=== PATIENT | male | born 1970 | race Caucasian/White ===

== ENCOUNTER 2018-09-01 14:53 | Inpatient (IN) | payer OTHER ==
[2018-09-01 16:15] VITALS: BMI 26.4
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
[2018-09-01] MEDS ORDERED: chlordiazePOXIDE HCL 10 MG CAPSULE PO PRN (17:32)
[2018-09-01] MEDS ORDERED: MENTHOL/PHENOL 1 EACH UD MM PRN (17:32)
[2018-09-01] MEDS ORDERED: MELATONIN 5 MG TABLETS PO PRN (17:32)
[2018-09-01] MEDS ORDERED: ACETAMINOPHEN 325 MG TABLET (FP) PO PRN ×2 (17:32)
[2018-09-01] MEDS ORDERED: MAG HYDROX/AL HYDROX/SIMETH 30 ML UNIT-DOSE CUP PO PRN (17:32)
[2018-09-01] MEDS ORDERED: MAGNESIUM CITRATE 300 ML BOTTLE PO PRN (17:32)
[2018-09-01] MEDS ORDERED: METHOCARBAMOL 500 MG TABLET PO PRN (17:32)
[2018-09-01] MEDS ORDERED: MAGNESIUM HYDROX 2400MG/30ML ORAL SUSPENSION 30 ML CUP PO PRN (17:32)
[2018-09-01] MEDS ORDERED: hydrOXYzine PAMOATE 25 MG CAPSULE (FP) PO PRN (17:32)
[2018-09-01] MEDS ORDERED: IBUPROFEN 400 MG TABLET (FP) PO PRN (17:32)
[2018-09-01] MEDS ORDERED: NICOTINE POLACRILEX 2 MG GUM BUC PRN (17:32)
[2018-09-01] MEDS ORDERED: BISMUTH SUBSALICYLATE 524 MG/30 ML UD PO PRN (17:32)
[2018-09-01] MEDS ORDERED: BACITRACIN 0.9 GM PACKET TP ONE (19:00)
[2018-09-01] MEDS: chlordiazePOXIDE HCL 25 MG CAPSULE PO SCH (23:18)
[2018-09-01] MEDS: THIAMINE HCL 100 MG TABLET (FP) PO SCH (23:18)
[2018-09-02] MEDS: chlordiazePOXIDE HCL 25 MG CAPSULE PO SCH ×2 (05:27→15:11)
[2018-09-02 10:11] LABS: HEMOGLOBIN 15.2 GM/dL (11.7-16.9); MCH 33.4 pg (25.7-33.7); MCHC 33.7 g/dl (32.0-35.9); MEAN PLT VOLUME 8.4 fl (7.5-11.1); PLATELET COUNT 223 K/MM3 (134-434); RBC 4.54 M/mm3 (4.00-5.60); RDW 14.1 % (11.9-15.9); WHITE BLOOD COUNT 3.8 K/mm3 (4.0-10.0)
[2018-09-02 10:25] LABS: ALBUMIN 3.5 g/dl (3.4-5.0); ALK PHOS 81 U/L (45-117); ANION GAP 6 MMOL/L (8-16); BILIRUBIN,TOTAL 1.2 mg/dL (0.2-1); BLOOD UREA NITROGEN 19 mg/dL (7-18); CALCIUM 8.8 mg/dL (8.5-10.1); CHLORIDE 103 mmol/L (98-107); CO2 28 mmol/L (21-32); GLUCOSE,RANDOM 93 mg/dL (74-106); POTASSIUM 4.1 mmol/L (3.5-5.1); SGOT/AST 46 U/L (15-37); SGPT/ALT 67 U/L (13-61); SODIUM 138 mmol/L (136-145); TOT PROT 7.2 g/dl (6.4-8.2)
[2018-09-02] MEDS: NICOTINE 14 MG/24 HOURS TOPICAL PATCH TD SCH (10:35)
[2018-09-02] MEDS: PRENATAL VITAMINS W/ FOLIC ACID TABLET (FP) PO SCH (10:36)
--- NOTE | 2018-09-02 10:59 | EKG ---
Test Reason : Blood Pressure : / mmHG Vent. Rate : 088 BPM Atrial Rate : 088 BPM P-R Int : 150 ms QRS Dur : 074 ms QT Int : 340 ms P-R-T Axes : 055 018 018 degrees QTc Int : 411 ms NORMAL SINUS RHYTHM NORMAL ECG NO PREVIOUS ECGS AVAILABLE Confirmed by ASAEL GARCIA MD ([id number]) on 09/02/2018 10:58:44 AM Referred By: LAURA SANTIAGO Confirmed By:ASAEL GARCIA MD
--- NOTE | 2018-09-02 14:23 | PN ---
S CIWA - CIWA Score Nausea/Vomitin-Mild Nausea/No Vomiting Muscle Tremors: 1-None Visible, but [place] Anxiety: 1-Mildly Anxious Agitation: 2 Paroxysmal Sweats: 1-Minimal Palms Moist Orientation: 0-Oriented Tacttile Disturbances: 0-None Auditory Disturbances: 0-None Visual Disturbances: 0-None Headache: 1-Very Mild CIWA-Ar Total Score: 7 BHS Progress Note (SOAP) Subjective: pt admitted yesterday for alcohol use disorder- also with facial injury due to fall on 08/31/18- negative eval in ER O: Vital Signs - 24 hr 09/01/18 09/01/18 09/02/18 16:08 21:33 00:44 Temperature 97.8 F 98.5 F Pulse Rate 125 H 90 Respiratory 18 18 18 Rate Blood Pressure 154/98 123/80 09/02/18 09/02/18 09/02/18 03:30 06:35 09:15 Temperature 98.2 F 96.3 F L Pulse Rate 62 96 H Respiratory 18 18 18 Rate Blood Pressure 103/67 127/79 09/02/18 13:47 Temperature 97.8 F Pulse Rate 78 Respiratory 18 Rate Blood Pressure 135/88 Laboratory Tests 09/02/18 09/02/18 09/02/18 07:00 07:00 07:00 WBC 3.8 L RBC 4.54 Hgb 15.2 Hct 45.0 MCV 99.0 H MCH 33.4 MCHC 33.7 RDW 14.1 Plt Count 223 MPV 8.4 Sodium 138 Potassium 4.1 Chloride 103 Carbon Dioxide 28 Anion Gap 6 L BUN 19 H Creatinine 1.0 Creat Clearance w eGFR 79.75 Random Glucose 93 Calcium 8.8 Total Bilirubin 1.2 H AST 46 H ALT 67 H Alkaline Phosphatase 81 Total Protein 7.2 Albumin 3.5 RPR Titer Nonreactive mildly elevated liver enzymes a/p: continue alcohol detox protocol: d/w pt to monitor facial injury for infection: increased swelling, redness or warmth
[2018-09-02] MEDS: chlordiazePOXIDE 5 MG CAPSULE PO SCH (22:39)
[2018-09-02] MEDS: THIAMINE HCL 100 MG TABLET (FP) PO SCH (22:39)
[2018-09-03] MEDS: chlordiazePOXIDE 5 MG CAPSULE PO SCH ×2 (06:07→14:11)
[2018-09-03] MEDS: NICOTINE 14 MG/24 HOURS TOPICAL PATCH TD SCH (10:55)
[2018-09-03] MEDS: PRENATAL VITAMINS W/ FOLIC ACID TABLET (FP) PO SCH (10:55)
--- NOTE | 2018-09-03 11:28 | PN ---
S CIWA - CIWA Score Nausea/Vomitin-No Nausea/No Vomiting Muscle Tremors: 4-Moderate,w/Arms Extend Anxiety: 4-Mod. Anxious/Guarded Agitation: 3 Paroxysmal Sweats: 1-Minimal Palms Moist Orientation: 0-Oriented Tacttile Disturbances: 0-None Auditory Disturbances: 0-None Visual Disturbances: 0-None Headache: 0-None Present CIWA-Ar Total Score: 12 BHS Progress Note (SOAP) Subjective: ANXIETY, TREMORS, IRRITABILITY, SWEATS. PAIN TO FACIAL TRUAMA INJURY RIGHT SIDE. Objective: 09/03/18 11:25 Vital Signs 09/03/18 09/03/18 06:11 09:40 Temperature 97.2 F L 97.3 F L Pulse Rate 57 L 69 Respiratory 18 18 Rate Blood Pressure 115/72 131/82 Laboratory Tests 09/02/18 09/02/18 09/02/18 07:00 07:00 07:00 WBC 3.8 L RBC 4.54 Hgb 15.2 Hct 45.0 MCV 99.0 H MCH 33.4 MCHC 33.7 RDW 14.1 Plt Count 223 MPV 8.4 Sodium 138 Potassium 4.1 Chloride 103 Carbon Dioxide 28 Anion Gap 6 L BUN 19 H Creatinine 1.0 Creat Clearance w eGFR 79.75 Random Glucose 93 Calcium 8.8 Total Bilirubin 1.2 H AST 46 H ALT 67 H Alkaline Phosphatase 81 Total Protein 7.2 Albumin 3.5 RPR Titer Nonreactive Assessment: 09/03/18 11:25 ALCOHOL WITHDRAWAL SX S/P HEAD TRUAMA W/ FACIAL INJURY Plan: CONTINUE DETOX CONTINUE CURRENT WOUND CARE. MOTRIN PRN
[2018-09-03] MEDS ORDERED: chlordiazePOXIDE HCL 10 MG CAPSULE PO PRN (21:00)
[2018-09-03] MEDS: chlordiazePOXIDE HCL 10 MG CAPSULE PO SCH (22:28)
[2018-09-03] MEDS: THIAMINE HCL 100 MG TABLET (FP) PO SCH (22:28)
[2018-09-03] MEDS: BACITRACIN 0.9 GM PACKET TP SCH (22:57)
[2018-09-04] MEDS: chlordiazePOXIDE HCL 10 MG CAPSULE PO SCH (06:44)
[2018-09-04 09:17] VITALS: BP 131/85; PULSE 64; TEMP 96.6
--- NOTE | 2018-09-04 09:26 | DS ---
[facility] Detox Discharge Summary Admission Date: 09/01/18 Discharge Date: 09/04/18 - History Present History: Alcohol Dependence Additional Comments: 48 years old male admitted on 09/01/18 for alcohol withdrawal stabilization completed alcohol detox regimen alert no acute distress aftercare [facility] Physical Exam Results Vital Signs: Vital Signs Temperature 96.6 F L 09/04/18 09:16 Pulse Rate 64 09/04/18 09:16 Respiratory Rate 18 09/04/18 09:16 Blood Pressure 131/85 09/04/18 09:16 O2 Sat by Pulse Oximetry (%) Pertinent Admission Physical Exam Findings: alcohol withdrawal sx Laboratory Last Values WBC 3.8 K/mm3 (4.0-10.0) L 09/02/18 07:00 RBC 4.54 M/mm3 (4.00-5.60) 09/02/18 07:00 Hgb 15.2 GM/dL (11.7-16.9) 09/02/18 07:00 Hct 45.0 % (35.4-49) 09/02/18 07:00 MCV 99.0 fl (80-96) H 09/02/18 07:00 MCH 33.4 pg (25.7-33.7) 09/02/18 07:00 MCHC 33.7 g/dl (32.0-35.9) 09/02/18 07:00 RDW 14.1 % (11.9-15.9) 09/02/18 07:00 Plt Count 223 K/MM3 (134-434) 09/02/18 07:00 MPV 8.4 fl (7.5-11.1) 09/02/18 07:00 Sodium 138 mmol/L (136-145) 09/02/18 07:00 Potassium 4.1 mmol/L (3.5-5.1) 09/02/18 07:00 Chloride 103 mmol/L (98-107) 09/02/18 07:00 Carbon Dioxide 28 mmol/L (21-32) 09/02/18 07:00 Anion Gap 6 MMOL/L (8-16) L 09/02/18 07:00 BUN 19 mg/dL (7-18) H 09/02/18 07:00 Creatinine 1.0 mg/dL (0.55-1.3) 09/02/18 07:00 Creat Clearance w eGFR 79.75 (>60) 09/02/18 07:00 Random Glucose 93 mg/dL (74-106) 09/02/18 07:00 Calcium 8.8 mg/dL (8.5-10.1) 09/02/18 07:00 Total Bilirubin 1.2 mg/dL (0.2-1) H 09/02/18 07:00 AST 46 U/L (15-37) H 09/02/18 07:00 ALT 67 U/L (13-61) H 09/02/18 07:00 Alkaline Phosphatase 81 U/L (45-117) 09/02/18 07:00 Total Protein 7.2 g/dl (6.4-8.2) 09/02/18 07:00 Albumin 3.5 g/dl (3.4-5.0) 09/02/18 07:00 RPR Titer Nonreactive (NONREACTIVE) 09/02/18 07:00 lab noted - Treatment Hospital Course: Detox Protocol Followed, Detoxed Safely, Responded well, Discharged Condition Good, Rehab Referral Accepted Patient has Accepted a Rehab Referral to: [facility] - Medication Discharge Medications: Ambulatory Orders NK [No Known Home Medication] 09/01/18 - Diagnosis (1) Alcohol dependence with uncomplicated withdrawal Current Visit: Yes Status: Acute (2) Soft tissue injury of face Current Visit: Yes Status: Acute Qualifiers: Encounter type: initial encounter Qualified Code(s): S09.93XA - Unspecified injury of face, initial encounter - AMA Did Patient Leave Against Medical Advice: No
[2018-09-04] MEDS: PRENATAL VITAMINS W/ FOLIC ACID TABLET (FP) PO SCH (10:25)
[2018-09-04] MEDS: BACITRACIN 0.9 GM PACKET TP SCH (10:26)
[2018-09-04] MEDS: NICOTINE 14 MG/24 HOURS TOPICAL PATCH TD SCH (10:26)
== END 2018-09-04 12:40 | disposition other institution (70) | DRG 775 ==
LOC: YASAS 14:53 → Y3N 18:26
PROVIDERS: ADMIT Surgery; ATTEND Surgery
PROC: HZ2ZZZZ Detoxification Services for Substance Abuse Treatment (ICD-10-PCS; principal; 2018-09-01)
DX: F10.230 Alcohol dependence with withdrawal, uncomplicated (principal); F17.210 Nicotine dependence, cigarettes, uncomplicated; R03.0 Elevated blood-pressure reading, without diagnosis of hypertension; S09.93XA Unspecified injury of face, initial encounter; W19.XXXA Unspecified fall, initial encounter; Z91.81 History of falling; Y93.89 Activity, other specified; Y92.89 Other specified places as the place of occurrence of the external cause; Y99.8 Other external cause status
CPT/HCPCS: 36415; 80053; 85027; 86593; 93005; 93010

== ENCOUNTER 2018-09-04 12:46 | Inpatient (IN) | payer OTHER ==
--- NOTE | 2018-09-04 09:28 | HP ---
NIESHA SCHMIDT Rehab Assess/Revision - Admission History Admitted to Rehab from: [facility] Date of Admission to Rehab: 09/04/18 - Findings Detox History & Physical reviewed: Yes Concur with findings: Yes Comments/Additional Findings: transferred from detox to rehab admission as per protocol Inpatient Rehab Admission - Rehab Decision to Admit Inpatient rehab admission?: Yes - Initial Determination Are CD services needed?: Yes Free of communicable disease: Yes Not in need of hospitalization: Yes - Rehab Admission Criteria Previous failed treatment: Yes Poor recovery environment: Yes Comorbidities: Yes Lacks judgement: No Patient is meeting Inpatient Rehab admission criteria:: Yes
[~2018-09-04 12:46] MED LIST: ACETAMINOPHEN 325 MG TABLET (FP) PO PRN; IBUPROFEN 400 MG TABLET (FP) PO PRN; LOPERAMIDE HCL 2 MG CAPSULE PO PRN; MAG HYDROX/AL HYDROX/SIMETH 30 ML UNIT-DOSE CUP PO PRN; MAGNESIUM CITRATE 300 ML BOTTLE PO PRN; MAGNESIUM HYDROX 2400MG/30ML ORAL SUSPENSION 30 ML CUP PO PRN; guaiFENesin 200 MG/10 ML 10 ML UNIT-DOSE CUPS PO PRN
[2018-09-04] MEDS ORDERED: NICOTINE 14 MG/24 HOURS TOPICAL PATCH TD PRN (13:38)
[2018-09-04] MEDS ORDERED: MENTHOL/PHENOL 1 EACH UD MM PRN (13:38)
[2018-09-04] MEDS ORDERED: NICOTINE POLACRILEX 2 MG GUM BUC PRN (13:38)
[2018-09-04] MEDS ORDERED: P-EPHED 60MG/TRIPROLIDI 2.5MG TABLET PO PRN (13:38)
[2018-09-04] MEDS: PRENATAL VITAMINS W/ FOLIC ACID TABLET (FP) PO SCH (14:08)
[2018-09-04] MEDS: BACITRACIN 0.9 GM PACKET TP SCH (14:08)
[2018-09-04] MEDS: MELATONIN 5 MG TABLETS PO PRN (21:25)
[2018-09-04] MEDS: THIAMINE HCL 100 MG TABLET (FP) PO SCH (21:25)
[2018-09-05] MEDS ORDERED: PT OWN MED DRAWER 7, Y5N ONE (09:08)
[2018-09-05] MEDS: PRENATAL VITAMINS W/ FOLIC ACID TABLET (FP) PO SCH (10:25)
[2018-09-05] MEDS: BACITRACIN 0.9 GM PACKET TP SCH (10:25)
[2018-09-05] MEDS: THIAMINE HCL 100 MG TABLET (FP) PO SCH (21:25)
[2018-09-05] MEDS: MELATONIN 5 MG TABLETS PO PRN (21:25)
[2018-09-06] MEDS: BACITRACIN 0.9 GM PACKET TP SCH (10:21)
[2018-09-06] MEDS: PRENATAL VITAMINS W/ FOLIC ACID TABLET (FP) PO SCH (10:21)
[2018-09-06] MEDS: MELATONIN 5 MG TABLETS PO PRN (21:16)
[2018-09-06] MEDS: THIAMINE HCL 100 MG TABLET (FP) PO SCH (21:16)
[2018-09-07] MEDS: BACITRACIN 0.9 GM PACKET TP SCH (10:45)
[2018-09-07] MEDS: PRENATAL VITAMINS W/ FOLIC ACID TABLET (FP) PO SCH (10:45)
[2018-09-07] MEDS: MELATONIN 5 MG TABLETS PO PRN (21:33)
[2018-09-07] MEDS: THIAMINE HCL 100 MG TABLET (FP) PO SCH (21:33)
[2018-09-08] MEDS: BACITRACIN 0.9 GM PACKET TP SCH (09:27)
[2018-09-08] MEDS: PRENATAL VITAMINS W/ FOLIC ACID TABLET (FP) PO SCH (09:27)
[2018-09-08] MEDS: THIAMINE HCL 100 MG TABLET (FP) PO SCH (21:25)
[2018-09-08] MEDS: MELATONIN 5 MG TABLETS PO PRN (21:26)
[2018-09-09] MEDS: PRENATAL VITAMINS W/ FOLIC ACID TABLET (FP) PO SCH (10:39)
[2018-09-09] MEDS: BACITRACIN 0.9 GM PACKET TP SCH (10:39)
[2018-09-09] MEDS: THIAMINE HCL 100 MG TABLET (FP) PO SCH (21:23)
[2018-09-09] MEDS: MELATONIN 5 MG TABLETS PO PRN (21:23)
[2018-09-10] MEDS: BACITRACIN 0.9 GM PACKET TP SCH (10:21)
[2018-09-10] MEDS: PRENATAL VITAMINS W/ FOLIC ACID TABLET (FP) PO SCH (10:21)
[2018-09-10] MEDS: THIAMINE HCL 100 MG TABLET (FP) PO SCH (21:25)
[2018-09-10] MEDS: MELATONIN 5 MG TABLETS PO PRN (21:25)
[2018-09-11] MEDS: PRENATAL VITAMINS W/ FOLIC ACID TABLET (FP) PO SCH (10:21)
[2018-09-11] MEDS: BACITRACIN 0.9 GM PACKET TP SCH (10:21)
[2018-09-11] MEDS: THIAMINE HCL 100 MG TABLET (FP) PO SCH (21:19)
[2018-09-11] MEDS: MELATONIN 5 MG TABLETS PO PRN (21:19)
[2018-09-12] MEDS: PRENATAL VITAMINS W/ FOLIC ACID TABLET (FP) PO SCH (10:19)
[2018-09-12] MEDS: BACITRACIN 0.9 GM PACKET TP SCH (10:19)
[2018-09-12] MEDS: MELATONIN 5 MG TABLETS PO PRN (21:17)
[2018-09-12] MEDS: THIAMINE HCL 100 MG TABLET (FP) PO SCH (21:17)
[2018-09-13] MEDS: PRENATAL VITAMINS W/ FOLIC ACID TABLET (FP) PO SCH (10:58)
[2018-09-13] MEDS: BACITRACIN 0.9 GM PACKET TP SCH (10:58)
[2018-09-13] MEDS: MELATONIN 5 MG TABLETS PO PRN (21:31)
[2018-09-13] MEDS: THIAMINE HCL 100 MG TABLET (FP) PO SCH (21:31)
[2018-09-14] MEDS: PRENATAL VITAMINS W/ FOLIC ACID TABLET (FP) PO SCH (10:44)
[2018-09-14] MEDS: BACITRACIN 0.9 GM PACKET TP SCH (10:44)
[2018-09-14] MEDS: THIAMINE HCL 100 MG TABLET (FP) PO SCH (21:15)
[2018-09-14] MEDS: MELATONIN 5 MG TABLETS PO PRN (21:15)
[2018-09-15] MEDS: PRENATAL VITAMINS W/ FOLIC ACID TABLET (FP) PO SCH (10:11)
[2018-09-15] MEDS: BACITRACIN 0.9 GM PACKET TP SCH (10:11)
--- NOTE | 2018-09-15 14:51 | PN ---
BHS Progress Note (SOAP) Subjective: Patient to be discharged tomorrow. Objective: A=Ox3; no neurological deficits, Heart sounds regular, Lungs clear, abd soft, non-tender. 09/15/18 14:47 Vital Signs (72 hours) 09/13/18 09/13/18 09/13/18 00:30 03:30 07:10 Temperature 97.4 F L Pulse Rate 60 Respiratory 18 18 18 Rate Blood Pressure 120/83 09/14/18 09/14/18 09/15/18 03:30 06:45 00:30 Temperature 97.4 F L Pulse Rate 57 L Respiratory 18 18 20 Rate Blood Pressure 127/86 09/15/18 09/15/18 03:30 07:03 Temperature 97.6 F Pulse Rate 58 L Respiratory 18 18 Rate Blood Pressure 120/84 09/15/18 14:49 Assessment: Medically stable for discharge ETOH dependence, chronic 09/15/18 14:48 Plan: After care at [facility]. Patient does not have a medical provider, no prescriptions. Encouraged patient to engage a medical provider.
[2018-09-15] MEDS: MELATONIN 5 MG TABLETS PO PRN (21:39)
[2018-09-15] MEDS: THIAMINE HCL 100 MG TABLET (FP) PO SCH (21:39)
[2018-09-16 07:10] VITALS: BP 121/92; PULSE 63; TEMP 97.5
== END 2018-09-16 09:45 | disposition home or self-care (01) | DRG 772 ==
LOC: YASAS 12:46 → Y3W 12:47
PROVIDERS: ADMIT Neuromusculoskeletal Medicine & OMM; ATTEND Neuromusculoskeletal Medicine & OMM
PROC: HZ42ZZZ Group Counseling for Substance Abuse Treatment, Cognitive-Behavioral (ICD-10-PCS; principal; 2018-09-07)
DX: F10.20 Alcohol dependence, uncomplicated (principal); F17.210 Nicotine dependence, cigarettes, uncomplicated; R00.0 Tachycardia, unspecified
CPT/HCPCS: 36415; 87389

== ENCOUNTER 2019-01-23 21:00 | Inpatient (IN) | payer OTHER ==
[2019-01-23 18:27] VITALS: BMI 25.4
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
[2019-01-23] MEDS ORDERED: MENTHOL/PHENOL 1 EACH UD MM PRN (22:49)
[2019-01-23] MEDS ORDERED: BISMUTH SUBSALICYLATE 524 MG/30 ML UD PO PRN (22:49)
[2019-01-23] MEDS ORDERED: ACETAMINOPHEN 325 MG TABLET (FP) PO PRN ×2 (22:49)
[2019-01-23] MEDS ORDERED: MAG HYDROX/AL HYDROX/SIMETH 30 ML UNIT-DOSE CUP PO PRN (22:49)
[2019-01-23] MEDS ORDERED: ONDANSETRON *ODT* 4 MG TABLET SL PRN (22:49)
[2019-01-23] MEDS ORDERED: IBUPROFEN 400 MG TABLET (FP) PO PRN (22:49)
[2019-01-23] MEDS ORDERED: NICOTINE POLACRILEX 2 MG GUM BUC PRN (22:49)
[2019-01-23] MEDS ORDERED: hydrOXYzine PAMOATE 25 MG CAPSULE (FP) PO PRN (22:49)
[2019-01-23] MEDS ORDERED: MAGNESIUM CITRATE 300 ML BOTTLE PO PRN (22:49)
[2019-01-23] MEDS ORDERED: MAGNESIUM HYDROX 2400MG/30ML ORAL SUSPENSION 30 ML CUP PO PRN (22:49)
[2019-01-23] MEDS ORDERED: chlordiazePOXIDE HCL 25 MG CAPSULE PO PRN (22:50)
[2019-01-24] MEDS: chlordiazePOXIDE HCL 25 MG CAPSULE PO SCH ×5 (00:02→22:12)
[2019-01-24] MEDS: MELATONIN 5 MG TABLETS PO PRN (00:03)
[2019-01-24] MEDS: BACITRACIN/POLYMYXIN B SULFATE 15 GM TUBE TP SCH ×3 (03:51→22:15)
[2019-01-24] MEDS: PRENATAL VITAMINS W/ FOLIC ACID TABLET (FP) PO SCH (10:34)
[2019-01-24 10:35] LABS: ALBUMIN 3.7 g/dl (3.4-5.0); BILIRUBIN,TOTAL 0.4 mg/dL (0.2-1); BLOOD UREA NITROGEN 12.8 mg/dL (7-18); CALCIUM 8.8 mg/dL (8.5-10.1); CREATININE 0.9 mg/dL (0.55-1.3); POTASSIUM 3.7 mmol/L (3.5-5.1); TOT PROT 7.3 g/dl (6.4-8.2)
[2019-01-24 10:44] LABS: HEMATOCRIT 45.4 % (35.4-49); HEMOGLOBIN 15.3 GM/dL (11.7-16.9); MCHC 33.7 g/dl (32.0-35.9); MEAN CELL VOLUME 100.8 fl (80-96); MEAN PLT VOLUME 8.4 fl (7.5-11.1); PLATELET COUNT 228 K/MM3 (134-434); RDW 15.2 % (11.9-15.9)
[2019-01-24] MEDS ORDERED: BACITRACIN 15 GM TUBE TOPICAL OINTMENT TP SCH (13:00)
--- NOTE | 2019-01-24 13:06 | PN ---
[facility] CIWA - CIWA Score Nausea/Vomitin-No Nausea/No Vomiting Muscle Tremors: 2 Anxiety: 4-Mod. Anxious/Guarded Agitation: 0-Normal Activity Paroxysmal Sweats: No Perspiration Orientation: 2-Disoriented Date<2 days Tacttile Disturbances: 2-Mild Itch/Numbness/Burn Auditory Disturbances: 0-None Visual Disturbances: 2-Mild Sensitivity Headache: 0-None Present CIWA-Ar Total Score: 12 BHS Progress Note (SOAP) Subjective: Body Aches, Anxious, Tremors. Objective: PATIENT A & O X 2 (UNCERTAIN ABOUT CURRENT DAY / DATE). IN NO ACUTE DISTRESS. 01/24/19 13:09 Vital Signs Temperature 98.4 F 01/24/19 09:35 Pulse Rate 87 01/24/19 09:35 Respiratory Rate 18 01/24/19 09:35 Blood Pressure 108/59 L 01/24/19 09:35 O2 Sat by Pulse Oximetry (%) Laboratory Tests 01/24/19 01/24/19 01/24/19 08:15 08:15 08:15 WBC 3.0 L RBC 4.50 Hgb 15.3 Hct 45.4 MCV 100.8 H MCH 34.0 H MCHC 33.7 RDW 15.2 Plt Count 228 MPV 8.4 Sodium 142 Potassium 3.7 Chloride 106 Carbon Dioxide 25 Anion Gap 10 BUN 12.8 Creatinine 0.9 Est GFR (CKD-EPI)AfAm 116.65 Est GFR (CKD-EPI)NonAf 100.64 Random Glucose 97 Calcium 8.8 Total Bilirubin 0.4 AST 126 H ALT 134 H Alkaline Phosphatase 89 Total Protein 7.3 Albumin 3.7 RPR Titer Nonreactive LABS NOTED. Assessment: 01/24/19 13:07 WITHDRAWAL SYMPTOMS. LEUKOPENIA. ELEVATED AST LEVEL. ELEVATED ALT LEVEL. 01/24/19 13:09 Plan: CONTINUE DETOX. INCREASE DAILY PO WATER INTAKE. REPEAT AST, ALT LEVELS ORDERED FOR 01/26/2019 FOR ELEVATED AST AND ALT LEVELS NOTED ON DETOX ADMISSION LABORATORY ASSESSMENT.
[2019-01-24] MEDS: MINERAL OIL/PETROLAT/WATER TOPICAL CREAM 113 GM JAR TP SCH ×2 (14:00→22:14)
[2019-01-24] MEDS: THIAMINE HCL 100 MG TABLET (FP) PO SCH (22:12)
[2019-01-25] MEDS: chlordiazePOXIDE HCL 25 MG CAPSULE PO SCH ×4 (05:24→22:22)
--- NOTE | 2019-01-25 10:23 | PN ---
[facility] CIWA - CIWA Score Nausea/Vomitin-Mild Nausea/No Vomiting Muscle Tremors: 2 Anxiety: 2 Agitation: 3 Paroxysmal Sweats: 2 Orientation: 1-Uncertain about Date Tacttile Disturbances: 0-None Auditory Disturbances: 0-None Visual Disturbances: 0-None Headache: 0-None Present CIWA-Ar Total Score: 11 [facility] Progress Note (SOAP) Subjective: doing well with librium detox regimen ate breakfast resting on bed comfortably Objective: 01/25/19 10:26 Vital Signs Temperature 97.2 F L 01/25/19 09:41 Pulse Rate 66 01/25/19 09:41 Respiratory Rate 18 01/25/19 09:41 Blood Pressure 140/96 01/25/19 09:41 O2 Sat by Pulse Oximetry (%) Laboratory Last Values WBC 3.0 K/mm3 (4.0-10.0) L 01/24/19 08:15 RBC 4.50 M/mm3 (4.00-5.60) 01/24/19 08:15 Hgb 15.3 GM/dL (11.7-16.9) 01/24/19 08:15 Hct 45.4 % (35.4-49) 01/24/19 08:15 MCV 100.8 fl (80-96) H 01/24/19 08:15 MCH 34.0 pg (25.7-33.7) H 01/24/19 08:15 MCHC 33.7 g/dl (32.0-35.9) 01/24/19 08:15 RDW 15.2 % (11.9-15.9) 01/24/19 08:15 Plt Count 228 K/MM3 (134-434) 01/24/19 08:15 MPV 8.4 fl (7.5-11.1) 01/24/19 08:15 Sodium 142 mmol/L (136-145) 01/24/19 08:15 Potassium 3.7 mmol/L (3.5-5.1) 01/24/19 08:15 Chloride 106 mmol/L (98-107) 01/24/19 08:15 Carbon Dioxide 25 mmol/L (21-32) 01/24/19 08:15 Anion Gap 10 MMOL/L (8-16) 01/24/19 08:15 BUN 12.8 mg/dL (7-18) 01/24/19 08:15 Creatinine 0.9 mg/dL (0.55-1.3) 01/24/19 08:15 Est GFR (CKD-EPI)AfAm 116.65 01/24/19 08:15 Est GFR (CKD-EPI)NonAf 100.64 01/24/19 08:15 Random Glucose 97 mg/dL (74-106) 01/24/19 08:15 Calcium 8.8 mg/dL (8.5-10.1) 01/24/19 08:15 Total Bilirubin 0.4 mg/dL (0.2-1) 01/24/19 08:15 AST 126 U/L (15-37) H 01/24/19 08:15 ALT 134 U/L (13-61) H 01/24/19 08:15 Alkaline Phosphatase 89 U/L (45-117) 01/24/19 08:15 Total Protein 7.3 g/dl (6.4-8.2) 01/24/19 08:15 Albumin 3.7 g/dl (3.4-5.0) 01/24/19 08:15 RPR Titer Nonreactive (NONREACTIVE) 01/24/19 08:15 lab noted 01/25/19 10:28 ast repeat 01/27/19 Assessment: 01/25/19 10:28 alcohol withdrawal sx Plan: continue librium detox regimen
[2019-01-25] MEDS: PRENATAL VITAMINS W/ FOLIC ACID TABLET (FP) PO SCH (10:30)
[2019-01-25] MEDS: MINERAL OIL/PETROLAT/WATER TOPICAL CREAM 113 GM JAR TP SCH ×2 (10:30→22:30)
[2019-01-25] MEDS: BACITRACIN/POLYMYXIN B SULFATE 15 GM TUBE TP SCH ×2 (10:30→22:30)
[2019-01-25] MEDS: THIAMINE HCL 100 MG TABLET (FP) PO SCH (22:22)
[2019-01-25] MEDS: MELATONIN 5 MG TABLETS PO PRN (22:22)
[2019-01-26] MEDS ORDERED: chlordiazePOXIDE HCL 10 MG CAPSULE PO PRN
[2019-01-26] MEDS: chlordiazePOXIDE HCL 10 MG CAPSULE PO SCH ×4 (06:00→22:21)
[2019-01-26] MEDS: PRENATAL VITAMINS W/ FOLIC ACID TABLET (FP) PO SCH (10:19)
[2019-01-26] MEDS: MINERAL OIL/PETROLAT/WATER TOPICAL CREAM 113 GM JAR TP SCH ×2 (10:20→22:28)
[2019-01-26] MEDS: BACITRACIN/POLYMYXIN B SULFATE 15 GM TUBE TP SCH ×2 (10:20→22:28)
--- NOTE | 2019-01-26 10:25 | PN ---
[facility] CIWA - CIWA Score Nausea/Vomitin-No Nausea/No Vomiting Muscle Tremors: 2 Anxiety: 2 Agitation: 2 Paroxysmal Sweats: 1-Minimal Palms Moist Orientation: 0-Oriented Tacttile Disturbances: 0-None Auditory Disturbances: 0-None Visual Disturbances: 0-None Headache: 0-None Present CIWA-Ar Total Score: 7 BHS Progress Note (SOAP) Subjective: informed ast elevation discuss alcohol related liver insult Objective: 01/26/19 10:29 Vital Signs Temperature 97.0 F L 01/26/19 09:20 Pulse Rate 69 01/26/19 09:20 Respiratory Rate 18 01/26/19 09:20 Blood Pressure 119/82 01/26/19 09:20 O2 Sat by Pulse Oximetry (%) Laboratory Last Values WBC 3.0 K/mm3 (4.0-10.0) L 01/24/19 08:15 RBC 4.50 M/mm3 (4.00-5.60) 01/24/19 08:15 Hgb 15.3 GM/dL (11.7-16.9) 01/24/19 08:15 Hct 45.4 % (35.4-49) 01/24/19 08:15 MCV 100.8 fl (80-96) H 01/24/19 08:15 MCH 34.0 pg (25.7-33.7) H 01/24/19 08:15 MCHC 33.7 g/dl (32.0-35.9) 01/24/19 08:15 RDW 15.2 % (11.9-15.9) 01/24/19 08:15 Plt Count 228 K/MM3 (134-434) 01/24/19 08:15 MPV 8.4 fl (7.5-11.1) 01/24/19 08:15 Sodium 142 mmol/L (136-145) 01/24/19 08:15 Potassium 3.7 mmol/L (3.5-5.1) 01/24/19 08:15 Chloride 106 mmol/L (98-107) 01/24/19 08:15 Carbon Dioxide 25 mmol/L (21-32) 01/24/19 08:15 Anion Gap 10 MMOL/L (8-16) 01/24/19 08:15 BUN 12.8 mg/dL (7-18) 01/24/19 08:15 Creatinine 0.9 mg/dL (0.55-1.3) 01/24/19 08:15 Est GFR (CKD-EPI)AfAm 116.65 01/24/19 08:15 Est GFR (CKD-EPI)NonAf 100.64 01/24/19 08:15 Random Glucose 97 mg/dL (74-106) 01/24/19 08:15 Calcium 8.8 mg/dL (8.5-10.1) 01/24/19 08:15 Total Bilirubin 0.4 mg/dL (0.2-1) 01/24/19 08:15 AST 126 U/L (15-37) H 01/24/19 08:15 ALT 134 U/L (13-61) H 01/24/19 08:15 Alkaline Phosphatase 89 U/L (45-117) 01/24/19 08:15 Total Protein 7.3 g/dl (6.4-8.2) 01/24/19 08:15 Albumin 3.7 g/dl (3.4-5.0) 01/24/19 08:15 RPR Titer Nonreactive (NONREACTIVE) 01/24/19 08:15 lab noted repeat ast Assessment: 01/26/19 10:29 alcohol withdrawal sx Plan: continue librium detox regimen
[2019-01-26] MEDS: THIAMINE HCL 100 MG TABLET (FP) PO SCH (22:21)
[2019-01-26] MEDS: MELATONIN 5 MG TABLETS PO PRN (22:21)
[2019-01-27] MEDS: chlordiazePOXIDE HCL 10 MG CAPSULE PO SCH ×2 (05:46→17:33)
[2019-01-27 09:49] LABS: SGOT/AST 89 U/L (15-37); SGPT/ALT 117 U/L (13-61)
[2019-01-27] MEDS: BACITRACIN/POLYMYXIN B SULFATE 15 GM TUBE TP SCH ×2 (10:20→22:27)
[2019-01-27] MEDS: PRENATAL VITAMINS W/ FOLIC ACID TABLET (FP) PO SCH (10:20)
[2019-01-27] MEDS: MINERAL OIL/PETROLAT/WATER TOPICAL CREAM 113 GM JAR TP SCH ×2 (10:20→22:27)
--- NOTE | 2019-01-27 14:38 | PN ---
S CIWA - CIWA Score Nausea/Vomitin Muscle Tremors: 1-None Visible, but Dingess Anxiety: 2 Agitation: 0-Normal Activity Paroxysmal Sweats: 1-Minimal Palms Moist Orientation: 0-Oriented Tacttile Disturbances: 0-None Auditory Disturbances: 0-None Visual Disturbances: 0-None Headache: 0-None Present CIWA-Ar Total Score: 7 S Progress Note (SOAP) Subjective: c/o of nausea , decrease appetite, chills , diarrhea Objective: 01/27/19 14:37 Vital Signs Temperature 97.0 F L 01/27/19 13:22 Pulse Rate 75 01/27/19 13:22 Respiratory Rate 18 01/27/19 13:22 Blood Pressure 131/78 01/27/19 13:22 O2 Sat by Pulse Oximetry (%) Laboratory Last Values WBC 3.0 K/mm3 (4.0-10.0) L 01/24/19 08:15 RBC 4.50 M/mm3 (4.00-5.60) 01/24/19 08:15 Hgb 15.3 GM/dL (11.7-16.9) 01/24/19 08:15 Hct 45.4 % (35.4-49) 01/24/19 08:15 MCV 100.8 fl (80-96) H 01/24/19 08:15 MCH 34.0 pg (25.7-33.7) H 01/24/19 08:15 MCHC 33.7 g/dl (32.0-35.9) 01/24/19 08:15 RDW 15.2 % (11.9-15.9) 01/24/19 08:15 Plt Count 228 K/MM3 (134-434) 01/24/19 08:15 MPV 8.4 fl (7.5-11.1) 01/24/19 08:15 Sodium 142 mmol/L (136-145) 01/24/19 08:15 Potassium 3.7 mmol/L (3.5-5.1) 01/24/19 08:15 Chloride 106 mmol/L (98-107) 01/24/19 08:15 Carbon Dioxide 25 mmol/L (21-32) 01/24/19 08:15 Anion Gap 10 MMOL/L (8-16) 01/24/19 08:15 BUN 12.8 mg/dL (7-18) 01/24/19 08:15 Creatinine 0.9 mg/dL (0.55-1.3) 01/24/19 08:15 Est GFR (CKD-EPI)AfAm 116.65 01/24/19 08:15 Est GFR (CKD-EPI)NonAf 100.64 01/24/19 08:15 Random Glucose 97 mg/dL (74-106) 01/24/19 08:15 Calcium 8.8 mg/dL (8.5-10.1) 01/24/19 08:15 Total Bilirubin 0.4 mg/dL (0.2-1) 01/24/19 08:15 AST 89 U/L (15-37) H 01/27/19 07:30 ALT 117 U/L (13-61) H 01/27/19 07:30 Alkaline Phosphatase 89 U/L (45-117) 01/24/19 08:15 Total Protein 7.3 g/dl (6.4-8.2) 01/24/19 08:15 Albumin 3.7 g/dl (3.4-5.0) 01/24/19 08:15 RPR Titer Nonreactive (NONREACTIVE) 01/24/19 08:15 Assessment: 01/27/19 14:37 Aox3 no acute distress no adventitious breath sounds full ROM no gait abnormality withdrawal sx Plan: fluids as tolerated if stable d/c in AM continue detox continue to monitor
[2019-01-27] MEDS: THIAMINE HCL 100 MG TABLET (FP) PO SCH (22:27)
[2019-01-28] MEDS ORDERED: chlordiazePOXIDE HCL 10 MG CAPSULE PO ONE (05:00)
[2019-01-28] MEDS: PRENATAL VITAMINS W/ FOLIC ACID TABLET (FP) PO SCH (10:17)
[2019-01-28] MEDS: MINERAL OIL/PETROLAT/WATER TOPICAL CREAM 113 GM JAR TP SCH (10:18)
[2019-01-28] MEDS: BACITRACIN/POLYMYXIN B SULFATE 15 GM TUBE TP SCH (10:18)
--- NOTE | 2019-01-28 13:13 | DS ---
[facility] Detox Discharge Summary Admission Date: 01/23/19 Discharge Date: 01/28/19 - History Present History: Alcohol Dependence Additional Comments: PATIENT GOING TO [facility] ([facility]) FOR AFTERCARE. PATIENT WAS DISCHARGED FROM DETOX UNIT TO BE TAKEN OVER TO REHAB UNIT IN STABLE MEDICAL CONDITION. Pertinent Past History: Elevated AST Level, Elevated ALT Level, Leukopenia. - Physical Exam Results Vital Signs: Vital Signs Temperature 97.1 F L 01/28/19 09:28 Pulse Rate 82 01/28/19 09:28 Respiratory Rate 18 01/28/19 09:28 Blood Pressure 135/78 01/28/19 09:28 O2 Sat by Pulse Oximetry (%) Pertinent Admission Physical Exam Findings: WITHDRAWAL SYMPTOMS. Laboratory Tests 01/24/19 01/24/19 01/24/19 08:15 08:15 08:15 WBC 3.0 L RBC 4.50 Hgb 15.3 Hct 45.4 MCV 100.8 H MCH 34.0 H MCHC 33.7 RDW 15.2 Plt Count 228 MPV 8.4 Sodium 142 Potassium 3.7 Chloride 106 Carbon Dioxide 25 Anion Gap 10 BUN 12.8 Creatinine 0.9 Est GFR (CKD-EPI)AfAm 116.65 Est GFR (CKD-EPI)NonAf 100.64 Random Glucose 97 Calcium 8.8 Total Bilirubin 0.4 AST 126 H ALT 134 H Alkaline Phosphatase 89 Total Protein 7.3 Albumin 3.7 RPR Titer Nonreactive 01/27/19 07:30 WBC RBC Hgb Hct MCV MCH MCHC RDW Plt Count MPV Sodium Potassium Chloride Carbon Dioxide Anion Gap BUN Creatinine Est GFR (CKD-EPI)AfAm Est GFR (CKD-EPI)NonAf Random Glucose Calcium Total Bilirubin AST 89 H ALT 117 H Alkaline Phosphatase Total Protein Albumin RPR Titer LABS NOTED. - Treatment Hospital Course: Detox Protocol Followed, Detoxed Safely, Responded well, Discharged Condition Good, Rehab Referral Accepted Patient has Accepted a Rehab Referral to: [facility] ([facility]). - Medication Discharge Medications: Ambulatory Orders NK [No Known Home Medication] 09/01/18 - Diagnosis (1) Alcohol dependence with intoxication Current Visit: Yes Status: Acute Qualifiers: Complication of substance-induced condition: uncomplicated Qualified Code(s ): F10.220 - Alcohol dependence with intoxication, uncomplicated - AMA Did Patient Leave Against Medical Advice: No BHS CIWA - CIWA Score Nausea/Vomitin-No Nausea/No Vomiting Muscle Tremors: None Anxiety: 0-No Anxiety, at Ease Agitation: 2 Paroxysmal Sweats: No Perspiration Orientation: 0-Oriented Tacttile Disturbances: 0-None Auditory Disturbances: 0-None Visual Disturbances: 0-None Headache: 0-None Present CIWA-Ar Total Score: 2
[2019-01-28 13:14] VITALS: BP 138/87; PULSE 71; TEMP 97.6
== END 2019-01-28 14:10 | disposition other institution (70) | DRG 775 ==
LOC: YASAS 21:00 → Y3N 23:23
PROVIDERS: ADMIT Surgery; ATTEND Surgery
PROC: HZ2ZZZZ Detoxification Services for Substance Abuse Treatment (ICD-10-PCS; principal; 2019-01-24)
DX: F10.20 Alcohol dependence, uncomplicated (principal); F10.220 Alcohol dependence with intoxication, uncomplicated; F17.210 Nicotine dependence, cigarettes, uncomplicated; D72.819 Decreased white blood cell count, unspecified; R74.0 Nonspecific elevation of levels of transaminase and lactic acid dehydrogenase [LDH]; R00.0 Tachycardia, unspecified; Z59.0 Homelessness
CPT/HCPCS: 36415; 80053; 84450; 84460; 85027; 86593

== ENCOUNTER 2019-01-28 14:15 | Inpatient (IN) | payer OTHER ==
--- NOTE | 2019-01-28 13:18 | HP ---
[facility] Rehab Assess/Revision - Admission History Admitted to Rehab from: [facility] Date of Admission to Rehab: 01/28/2019 - Vital signs Vital Signs: NOTED; STABLE. - Findings Detox History & Physical reviewed: Yes Concur with findings: Yes Comments/Additional Findings: PATIENT'S MEDICAL / MEDICATION HISTORY REVIEWED PRIOR TO DISCHARGE FROM DETOX UNIT. PATIENT WAS DISCHARGED FROM DETOX UNIT TO BE TAKEN OVER TO REHAB UNIT IN STABLE MEDICAL CONDITION. Inpatient Rehab Admission - Rehab Decision to Admit Inpatient rehab admission?: Yes - Initial Determination Are CD services needed?: Yes Free of communicable disease: Yes Not in need of hospitalization: Yes - Rehab Admission Criteria Previous failed treatment: Yes Poor recovery environment: Yes Comorbidities: No Lacks judgement: Yes Patient is meeting Inpatient Rehab admission criteria:: Yes
[~2019-01-28 14:15] MED LIST changes: +MENTHOL/PHENOL 1 EACH UD MM PRN; +NICOTINE POLACRILEX 2 MG GUM BUC PRN; +P-EPHED 60MG/TRIPROLIDI 2.5MG TABLET PO PRN
[2019-01-28] MEDS: THIAMINE HCL 100 MG TABLET (FP) PO SCH (21:31)
[2019-01-28] MEDS: BACITRACIN/POLYMYXIN B SULFATE 15 GM TUBE TP SCH (21:31)
[2019-01-28] MEDS: MELATONIN 5 MG TABLETS PO PRN (21:32)
[2019-01-29] MEDS: PRENATAL VITAMINS W/ FOLIC ACID TABLET (FP) PO SCH (10:01)
[2019-01-29] MEDS: BACITRACIN/POLYMYXIN B SULFATE 15 GM TUBE TP SCH ×2 (10:01→21:18)
[2019-01-29] MEDS ORDERED: FLU VACCINE QUAD 60 MCG/0.5 ML (MDV 19-20) IM ONE (12:00)
[2019-01-29] MEDS ORDERED: PNEUMOC 13-VAL CONJ-DIP CRM/PF 0.5 ML DISP.SYRIN IM ONE (12:00)
[2019-01-29] MEDS: THIAMINE HCL 100 MG TABLET (FP) PO SCH (21:18)
[2019-01-29] MEDS: MELATONIN 5 MG TABLETS PO PRN (21:19)
[2019-01-30] MEDS: BACITRACIN/POLYMYXIN B SULFATE 15 GM TUBE TP SCH ×2 (10:27→21:43)
[2019-01-30] MEDS: PRENATAL VITAMINS W/ FOLIC ACID TABLET (FP) PO SCH (10:27)
[2019-01-30] MEDS: THIAMINE HCL 100 MG TABLET (FP) PO SCH (21:43)
[2019-01-31] MEDS: BACITRACIN/POLYMYXIN B SULFATE 15 GM TUBE TP SCH ×2 (10:13→21:11)
[2019-01-31] MEDS: PRENATAL VITAMINS W/ FOLIC ACID TABLET (FP) PO SCH (10:13)
[2019-01-31] MEDS: MELATONIN 5 MG TABLETS PO PRN (21:11)
[2019-01-31] MEDS: THIAMINE HCL 100 MG TABLET (FP) PO SCH (21:11)
[2019-02-01] MEDS: BACITRACIN/POLYMYXIN B SULFATE 15 GM TUBE TP SCH ×2 (10:38→21:32)
[2019-02-01] MEDS: PRENATAL VITAMINS W/ FOLIC ACID TABLET (FP) PO SCH (10:38)
[2019-02-01] MEDS: MELATONIN 5 MG TABLETS PO PRN (21:31)
[2019-02-01] MEDS: THIAMINE HCL 100 MG TABLET (FP) PO SCH (21:31)
[2019-02-02] MEDS: BACITRACIN/POLYMYXIN B SULFATE 15 GM TUBE TP SCH ×2 (10:18→21:15)
[2019-02-02] MEDS: PRENATAL VITAMINS W/ FOLIC ACID TABLET (FP) PO SCH (10:18)
[2019-02-02] MEDS: MELATONIN 5 MG TABLETS PO PRN (21:15)
[2019-02-02] MEDS: THIAMINE HCL 100 MG TABLET (FP) PO SCH (21:15)
[2019-02-03] MEDS: BACITRACIN/POLYMYXIN B SULFATE 15 GM TUBE TP SCH ×2 (10:29→21:32)
[2019-02-03] MEDS: PRENATAL VITAMINS W/ FOLIC ACID TABLET (FP) PO SCH (10:29)
[2019-02-03] MEDS: THIAMINE HCL 100 MG TABLET (FP) PO SCH (21:31)
[2019-02-03] MEDS: MELATONIN 5 MG TABLETS PO PRN (21:32)
[2019-02-04] MEDS: PRENATAL VITAMINS W/ FOLIC ACID TABLET (FP) PO SCH (09:27)
[2019-02-04] MEDS: BACITRACIN/POLYMYXIN B SULFATE 15 GM TUBE TP SCH ×2 (09:28→21:11)
[2019-02-04] MEDS: THIAMINE HCL 100 MG TABLET (FP) PO SCH (21:10)
[2019-02-05] MEDS ORDERED: PT OWN MED DRAWER 7, Y5N ONE (08:28)
[2019-02-05] MEDS: BACITRACIN/POLYMYXIN B SULFATE 15 GM TUBE TP SCH ×2 (09:50→21:25)
[2019-02-05] MEDS: PRENATAL VITAMINS W/ FOLIC ACID TABLET (FP) PO SCH (09:50)
[2019-02-05] MEDS: THIAMINE HCL 100 MG TABLET (FP) PO SCH (21:25)
[2019-02-06] MEDS: PRENATAL VITAMINS W/ FOLIC ACID TABLET (FP) PO SCH (10:45)
[2019-02-06] MEDS: BACITRACIN/POLYMYXIN B SULFATE 15 GM TUBE TP SCH ×2 (10:45→21:05)
[2019-02-06] MEDS ORDERED: PT OWN MED DRAWER 7, Y5N ONE ×2 (19:07→22:45)
[2019-02-06] MEDS: THIAMINE HCL 100 MG TABLET (FP) PO SCH (21:05)
[2019-02-06] MEDS: MELATONIN 5 MG TABLETS PO PRN (21:05)
[2019-02-07] MEDS: PRENATAL VITAMINS W/ FOLIC ACID TABLET (FP) PO SCH (10:26)
[2019-02-07] MEDS: BACITRACIN/POLYMYXIN B SULFATE 15 GM TUBE TP SCH ×2 (10:27→21:31)
[2019-02-07] MEDS: MELATONIN 5 MG TABLETS PO PRN (21:31)
[2019-02-07] MEDS: THIAMINE HCL 100 MG TABLET (FP) PO SCH (21:31)
[2019-02-08] MEDS: PRENATAL VITAMINS W/ FOLIC ACID TABLET (FP) PO SCH (10:37)
[2019-02-08] MEDS: BACITRACIN/POLYMYXIN B SULFATE 15 GM TUBE TP SCH ×2 (10:37→21:05)
[2019-02-08] MEDS: THIAMINE HCL 100 MG TABLET (FP) PO SCH (21:04)
[2019-02-08] MEDS: MELATONIN 5 MG TABLETS PO PRN (21:04)
[2019-02-08] MEDS ORDERED: PT OWN MED DRAWER 7, Y5N ONE (23:01)
[2019-02-09] MEDS: PRENATAL VITAMINS W/ FOLIC ACID TABLET (FP) PO SCH (09:50)
[2019-02-09] MEDS: BACITRACIN/POLYMYXIN B SULFATE 15 GM TUBE TP SCH ×2 (09:51→21:17)
[2019-02-09] MEDS ORDERED: PT OWN MED DRAWER 7, Y5N ONE (09:52)
[2019-02-09] MEDS: MELATONIN 5 MG TABLETS PO PRN (21:17)
[2019-02-09] MEDS: THIAMINE HCL 100 MG TABLET (FP) PO SCH (21:17)
[2019-02-10] MEDS: PRENATAL VITAMINS W/ FOLIC ACID TABLET (FP) PO SCH (10:10)
[2019-02-10] MEDS: BACITRACIN/POLYMYXIN B SULFATE 15 GM TUBE TP SCH ×2 (10:11→21:07)
[2019-02-10] MEDS: MELATONIN 5 MG TABLETS PO PRN (21:07)
[2019-02-10] MEDS: THIAMINE HCL 100 MG TABLET (FP) PO SCH (21:07)
[2019-02-11] MEDS: BACITRACIN/POLYMYXIN B SULFATE 15 GM TUBE TP SCH ×2 (10:25→21:31)
[2019-02-11] MEDS: PRENATAL VITAMINS W/ FOLIC ACID TABLET (FP) PO SCH (10:25)
[2019-02-11] MEDS: THIAMINE HCL 100 MG TABLET (FP) PO SCH (21:30)
[2019-02-11] MEDS: MELATONIN 5 MG TABLETS PO PRN (21:31)
[2019-02-11] MEDS ORDERED: PT OWN MED DRAWER 7, Y5N ONE (21:32)
[2019-02-12] MEDS: BACITRACIN/POLYMYXIN B SULFATE 15 GM TUBE TP SCH ×2 (10:19→21:10)
[2019-02-12] MEDS: PRENATAL VITAMINS W/ FOLIC ACID TABLET (FP) PO SCH (10:19)
[2019-02-12] MEDS: THIAMINE HCL 100 MG TABLET (FP) PO SCH (21:10)
[2019-02-13 07:08] VITALS: BP 116/80; PULSE 53; TEMP 97.3
[2019-02-13] MEDS ORDERED: PT OWN MED DRAWER 7, Y5N ONE (08:31)
[2019-02-13] MEDS: PRENATAL VITAMINS W/ FOLIC ACID TABLET (FP) PO SCH (09:10)
[2019-02-13] MEDS: BACITRACIN/POLYMYXIN B SULFATE 15 GM TUBE TP SCH (09:10)
--- NOTE | 2019-02-13 14:04 | DS ---
[facility] Rehab Discharge Summary - [facility] Rehab Discharge Summary Admission Date: 01/28/19 Discharge Date: 02/13/19 - History Present History: Alcohol dependence - Discharge Physical Exam Vital Signs: Vital Signs Temperature 97.3 F L 02/13/19 06:00 Pulse Rate 53 L 02/13/19 06:00 Respiratory Rate 18 02/13/19 06:00 Blood Pressure 116/80 02/13/19 06:00 O2 Sat by Pulse Oximetry (%) Pertinent Admission Physical Exam Findings: ROS: denies ETOH cravings, chest pain, sob and dizziness. PE: alert and oriented x 3 skin warm and dry +perrla, eoms intact bl car s1s2 resp cta bl - Treatment Discharge Condition: Discharge condition good Hospital Course: Patient attended group meetings, adhered to treatment regimen and states he accomplished all rehab goals. Patient is medically stable and denies SI/HI upon discharge. Aftercare arranged at [facility] and patient encouraged to complete treatment to prevent relapse. Vital Signs Temperature 97.3 F L 02/13/19 06:00 Pulse Rate 53 L 02/13/19 06:00 Respiratory Rate 18 02/13/19 06:00 Blood Pressure 116/80 02/13/19 06:00 O2 Sat by Pulse Oximetry (%) - Medication Discharge Medications: Ambulatory Orders NK [No Known Home Medication] 09/01/18 - Medication-Assisted Treatment (MAT) Medication-Assisted Treatment (MAT): No - Discharge Instructions Diet, activity, other medical instructions: Diet: reg as minal Activity: as tolerated Other medical instructions: follow up with pcp within one week of discharge to continue medical management - Follow-up Referral Minutes to complete discharge: 30 - AMA Did Patient Leave Against Medical Advice: No
== END 2019-02-13 09:20 | disposition home or self-care (01) | DRG 772 ==
LOC: YASAS 14:15 → Y3W 14:16
PROVIDERS: ADMIT Neuromusculoskeletal Medicine & OMM; ATTEND Neuromusculoskeletal Medicine & OMM
PROC: HZ42ZZZ Group Counseling for Substance Abuse Treatment, Cognitive-Behavioral (ICD-10-PCS; principal; 2019-01-28)
DX: F10.20 Alcohol dependence, uncomplicated (principal); Z59.0 Homelessness
CPT/HCPCS: 90670; G0008; G0009; Q2036

== ENCOUNTER 2020-05-17 14:01 | Inpatient (IN) | payer OTHER ==
[2020-05-17] MEDS ORDERED: P-EPHED 60MG/TRIPROLIDI 2.5MG TABLET PO PRN (14:54)
[2020-05-17] MEDS ORDERED: LOPERAMIDE HCL 2 MG CAPSULE PO PRN (14:54)
[2020-05-17] MEDS ORDERED: NICOTINE POLACRILEX 2 MG GUM BUC PRN (14:54)
[2020-05-17] MEDS ORDERED: MAGNESIUM HYDROX 2400MG/30ML ORAL SUSPENSION 30 ML CUP PO PRN (14:54)
[2020-05-17] MEDS ORDERED: MAG HYDROX/AL HYDROX/SIMETH 30 ML UNIT-DOSE CUP PO PRN (14:54)
[2020-05-17] MEDS ORDERED: MENTHOL/PHENOL 1 EACH UD MM PRN (14:54)
[2020-05-17] MEDS ORDERED: MAGNESIUM CITRATE 300 ML BOTTLE PO PRN (14:54)
[2020-05-17] MEDS ORDERED: guaiFENesin 200 MG/10 ML 10 ML UNIT-DOSE CUPS PO PRN (14:54)
[2020-05-17] MEDS: METHOCARBAMOL 500 MG TABLET PO PRN (21:28)
[2020-05-17] MEDS: MELATONIN 5 MG TABLETS PO SCH (21:28)
[2020-05-17] MEDS: hydrOXYzine PAMOATE 25 MG CAPSULE (FP) PO PRN (21:28)
[2020-05-17] MEDS: THIAMINE HCL 100 MG TABLET (FP) PO SCH (21:28)
[2020-05-18] MEDS: NICOTINE 7 MG/24 HOURS TOPICAL PATCH TD SCH (10:03)
[2020-05-18] MEDS: PRENATAL VITAMINS W/ FOLIC ACID TABLET (FP) PO SCH (10:03)
[2020-05-18] MEDS: THIAMINE HCL 100 MG TABLET (FP) PO SCH (21:50)
[2020-05-18] MEDS: MELATONIN 5 MG TABLETS PO SCH (21:51)
[2020-05-19] MEDS: PRENATAL VITAMINS W/ FOLIC ACID TABLET (FP) PO SCH (10:11)
[2020-05-19] MEDS: NICOTINE 7 MG/24 HOURS TOPICAL PATCH TD SCH (10:12)
[2020-05-19] MEDS: MELATONIN 5 MG TABLETS PO SCH (21:51)
[2020-05-19] MEDS: THIAMINE HCL 100 MG TABLET (FP) PO SCH (21:51)
[2020-05-20] MEDS: PRENATAL VITAMINS W/ FOLIC ACID TABLET (FP) PO SCH (09:59)
[2020-05-20] MEDS: NICOTINE 7 MG/24 HOURS TOPICAL PATCH TD SCH (10:00)
[2020-05-20] MEDS: THIAMINE HCL 100 MG TABLET (FP) PO SCH (21:18)
[2020-05-20] MEDS: hydrOXYzine PAMOATE 25 MG CAPSULE (FP) PO PRN (21:18)
[2020-05-20] MEDS: MELATONIN 5 MG TABLETS PO SCH (21:18)
[2020-05-20] MEDS: METHOCARBAMOL 500 MG TABLET PO PRN (21:18)
[2020-05-21] MEDS: NICOTINE 7 MG/24 HOURS TOPICAL PATCH TD SCH (10:11)
[2020-05-21] MEDS: PRENATAL VITAMINS W/ FOLIC ACID TABLET (FP) PO SCH (10:11)
[2020-05-21] MEDS: MELATONIN 5 MG TABLETS PO SCH (21:37)
[2020-05-21] MEDS: METHOCARBAMOL 500 MG TABLET PO PRN (21:37)
[2020-05-21] MEDS: THIAMINE HCL 100 MG TABLET (FP) PO SCH (21:37)
[2020-05-21] MEDS: hydrOXYzine PAMOATE 25 MG CAPSULE (FP) PO PRN (21:37)
[2020-05-22] MEDS: PRENATAL VITAMINS W/ FOLIC ACID TABLET (FP) PO SCH (10:39)
[2020-05-22] MEDS: NICOTINE 7 MG/24 HOURS TOPICAL PATCH TD SCH (10:39)
[2020-05-22] MEDS: MELATONIN 5 MG TABLETS PO SCH (21:17)
[2020-05-22] MEDS: THIAMINE HCL 100 MG TABLET (FP) PO SCH (21:17)
[2020-05-23] MEDS: PRENATAL VITAMINS W/ FOLIC ACID TABLET (FP) PO SCH (10:17)
[2020-05-23] MEDS: NICOTINE 7 MG/24 HOURS TOPICAL PATCH TD SCH (10:17)
[2020-05-23] MEDS: MELATONIN 5 MG TABLETS PO SCH (21:26)
[2020-05-23] MEDS: THIAMINE HCL 100 MG TABLET (FP) PO SCH (21:26)
[2020-05-23] MEDS: ACETAMINOPHEN 325 MG TABLET (FP) PO PRN (21:31)
[2020-05-24] MEDS: PRENATAL VITAMINS W/ FOLIC ACID TABLET (FP) PO SCH (10:17)
[2020-05-24] MEDS: NICOTINE 7 MG/24 HOURS TOPICAL PATCH TD SCH (10:17)
[2020-05-24] MEDS: THIAMINE HCL 100 MG TABLET (FP) PO SCH (21:19)
[2020-05-24] MEDS: MELATONIN 5 MG TABLETS PO SCH (21:19)
[2020-05-25] MEDS: PRENATAL VITAMINS W/ FOLIC ACID TABLET (FP) PO SCH (10:19)
[2020-05-25] MEDS: NICOTINE 7 MG/24 HOURS TOPICAL PATCH TD SCH (10:19)
[2020-05-25] MEDS: MELATONIN 5 MG TABLETS PO SCH (21:42)
[2020-05-25] MEDS: hydrOXYzine PAMOATE 25 MG CAPSULE (FP) PO PRN (21:42)
[2020-05-25] MEDS: THIAMINE HCL 100 MG TABLET (FP) PO SCH (21:42)
[2020-05-25] MEDS: METHOCARBAMOL 500 MG TABLET PO PRN (21:43)
[2020-05-25] MEDS: ACETAMINOPHEN 325 MG TABLET (FP) PO PRN (21:43)
[2020-05-26] MEDS: PRENATAL VITAMINS W/ FOLIC ACID TABLET (FP) PO SCH (09:48)
[2020-05-26] MEDS: hydrOXYzine PAMOATE 25 MG CAPSULE (FP) PO PRN ×2 (09:48→21:14)
[2020-05-26] MEDS: NICOTINE 7 MG/24 HOURS TOPICAL PATCH TD SCH (09:56)
[2020-05-26] MEDS: THIAMINE HCL 100 MG TABLET (FP) PO SCH (21:14)
[2020-05-26] MEDS: MELATONIN 5 MG TABLETS PO SCH (21:14)
[2020-05-26] MEDS: METHOCARBAMOL 500 MG TABLET PO PRN (21:14)
[2020-05-26] MEDS: IBUPROFEN 400 MG TABLET (FP) PO PRN (21:14)
[2020-05-27] MEDS: PRENATAL VITAMINS W/ FOLIC ACID TABLET (FP) PO SCH (10:02)
[2020-05-27] MEDS: NICOTINE 7 MG/24 HOURS TOPICAL PATCH TD SCH (10:02)
[2020-05-27] MEDS: MELATONIN 5 MG TABLETS PO SCH (21:38)
[2020-05-27] MEDS: THIAMINE HCL 100 MG TABLET (FP) PO SCH (21:38)
[2020-05-27] MEDS: METHOCARBAMOL 500 MG TABLET PO PRN (21:38)
[2020-05-27] MEDS: IBUPROFEN 400 MG TABLET (FP) PO PRN (21:38)
[2020-05-27] MEDS: hydrOXYzine PAMOATE 25 MG CAPSULE (FP) PO PRN (21:38)
[2020-05-28] MEDS: PRENATAL VITAMINS W/ FOLIC ACID TABLET (FP) PO SCH (09:59)
[2020-05-28] MEDS: NICOTINE 7 MG/24 HOURS TOPICAL PATCH TD SCH (09:59)
[2020-05-28] MEDS ORDERED: LIDOCAINE VISCOUS 2% ORAL/TOP 20 ML UNIT-DOSE CUP MM PRN (10:06)
[2020-05-28] MEDS: AMOXICILLIN 500 MG CAPSULE (FP) PO SCH ×2 (14:33→21:48)
[2020-05-28] MEDS: MELATONIN 5 MG TABLETS PO SCH (21:48)
[2020-05-28] MEDS: THIAMINE HCL 100 MG TABLET (FP) PO SCH (21:48)
[2020-05-29] MEDS: IBUPROFEN 400 MG TABLET (FP) PO PRN ×2 (03:11→18:10)
[2020-05-29] MEDS: AMOXICILLIN 500 MG CAPSULE (FP) PO SCH ×3 (07:23→21:41)
[2020-05-29] MEDS: PRENATAL VITAMINS W/ FOLIC ACID TABLET (FP) PO SCH (10:02)
[2020-05-29] MEDS: NICOTINE 7 MG/24 HOURS TOPICAL PATCH TD SCH (10:03)
[2020-05-29] MEDS: hydrOXYzine PAMOATE 25 MG CAPSULE (FP) PO PRN (21:41)
[2020-05-29] MEDS: MELATONIN 5 MG TABLETS PO SCH (21:41)
[2020-05-29] MEDS: THIAMINE HCL 100 MG TABLET (FP) PO SCH (21:41)
[2020-05-29] MEDS: METHOCARBAMOL 500 MG TABLET PO PRN (21:41)
[2020-05-30] MEDS: AMOXICILLIN 500 MG CAPSULE (FP) PO SCH ×3 (06:55→21:17)
[2020-05-30] MEDS: PRENATAL VITAMINS W/ FOLIC ACID TABLET (FP) PO SCH (10:12)
[2020-05-30] MEDS: NICOTINE 7 MG/24 HOURS TOPICAL PATCH TD SCH (10:12)
[2020-05-30] MEDS: hydrOXYzine PAMOATE 25 MG CAPSULE (FP) PO PRN (21:17)
[2020-05-30] MEDS: MELATONIN 5 MG TABLETS PO SCH (21:17)
[2020-05-30] MEDS: IBUPROFEN 400 MG TABLET (FP) PO PRN (21:18)
[2020-05-30] MEDS: METHOCARBAMOL 500 MG TABLET PO PRN (21:18)
[2020-05-30] MEDS: THIAMINE HCL 100 MG TABLET (FP) PO SCH (21:18)
[2020-05-31] MEDS: AMOXICILLIN 500 MG CAPSULE (FP) PO SCH ×3 (06:58→21:38)
[2020-05-31] MEDS: NICOTINE 7 MG/24 HOURS TOPICAL PATCH TD SCH (10:28)
[2020-05-31] MEDS: PRENATAL VITAMINS W/ FOLIC ACID TABLET (FP) PO SCH (10:28)
[2020-05-31] MEDS: IBUPROFEN 400 MG TABLET (FP) PO PRN (16:54)
[2020-05-31] MEDS: hydrOXYzine PAMOATE 25 MG CAPSULE (FP) PO PRN (21:38)
[2020-05-31] MEDS: MELATONIN 5 MG TABLETS PO SCH (21:38)
[2020-05-31] MEDS: THIAMINE HCL 100 MG TABLET (FP) PO SCH (21:38)
[2020-05-31] MEDS: METHOCARBAMOL 500 MG TABLET PO PRN (21:38)
[2020-06-01] MEDS: AMOXICILLIN 500 MG CAPSULE (FP) PO SCH ×3 (06:57→21:48)
[2020-06-01] MEDS: PRENATAL VITAMINS W/ FOLIC ACID TABLET (FP) PO SCH (10:02)
[2020-06-01] MEDS: NICOTINE 7 MG/24 HOURS TOPICAL PATCH TD SCH (10:02)
[2020-06-01] MEDS: MELATONIN 5 MG TABLETS PO SCH (21:48)
[2020-06-01] MEDS: THIAMINE HCL 100 MG TABLET (FP) PO SCH (21:48)
[2020-06-02] MEDS: AMOXICILLIN 500 MG CAPSULE (FP) PO SCH ×3 (07:05→21:49)
[2020-06-02] MEDS: NICOTINE 7 MG/24 HOURS TOPICAL PATCH TD SCH (10:10)
[2020-06-02] MEDS: PRENATAL VITAMINS W/ FOLIC ACID TABLET (FP) PO SCH (10:10)
[2020-06-02] MEDS: hydrOXYzine PAMOATE 25 MG CAPSULE (FP) PO PRN (21:49)
[2020-06-02] MEDS: THIAMINE HCL 100 MG TABLET (FP) PO SCH (21:49)
[2020-06-02] MEDS: METHOCARBAMOL 500 MG TABLET PO PRN (21:49)
[2020-06-02] MEDS: MELATONIN 5 MG TABLETS PO SCH (21:49)
[2020-06-03] MEDS: AMOXICILLIN 500 MG CAPSULE (FP) PO SCH ×3 (06:23→21:45)
[2020-06-03] MEDS: PRENATAL VITAMINS W/ FOLIC ACID TABLET (FP) PO SCH (10:26)
[2020-06-03] MEDS: NICOTINE 7 MG/24 HOURS TOPICAL PATCH TD SCH (10:26)
[2020-06-03] MEDS: THIAMINE HCL 100 MG TABLET (FP) PO SCH (21:45)
[2020-06-03] MEDS: MELATONIN 5 MG TABLETS PO SCH (21:45)
[2020-06-04] MEDS: AMOXICILLIN 500 MG CAPSULE (FP) PO SCH (06:25)
[2020-06-04] MEDS: PRENATAL VITAMINS W/ FOLIC ACID TABLET (FP) PO SCH (10:09)
[2020-06-04] MEDS: NICOTINE 7 MG/24 HOURS TOPICAL PATCH TD SCH (10:10)
[2020-06-04] MEDS: THIAMINE HCL 100 MG TABLET (FP) PO SCH (21:23)
[2020-06-04] MEDS: MELATONIN 5 MG TABLETS PO SCH (21:23)
[2020-06-04] MEDS: METHOCARBAMOL 500 MG TABLET PO PRN (21:23)
[2020-06-04] MEDS: hydrOXYzine PAMOATE 25 MG CAPSULE (FP) PO PRN (21:24)
[2020-06-05] MEDS: NICOTINE 7 MG/24 HOURS TOPICAL PATCH TD SCH (10:02)
[2020-06-05] MEDS: PRENATAL VITAMINS W/ FOLIC ACID TABLET (FP) PO SCH (10:02)
[2020-06-05] MEDS: hydrOXYzine PAMOATE 25 MG CAPSULE (FP) PO PRN (21:51)
[2020-06-05] MEDS: METHOCARBAMOL 500 MG TABLET PO PRN (21:51)
[2020-06-05] MEDS: THIAMINE HCL 100 MG TABLET (FP) PO SCH (21:51)
[2020-06-05] MEDS: MELATONIN 5 MG TABLETS PO SCH (21:51)
[2020-06-06] MEDS: PRENATAL VITAMINS W/ FOLIC ACID TABLET (FP) PO SCH (10:15)
[2020-06-06] MEDS: NICOTINE 7 MG/24 HOURS TOPICAL PATCH TD SCH (10:15)
[2020-06-06] MEDS: METHOCARBAMOL 500 MG TABLET PO PRN ×2 (17:21→21:15)
[2020-06-06] MEDS: hydrOXYzine PAMOATE 25 MG CAPSULE (FP) PO PRN (21:15)
[2020-06-06] MEDS: MELATONIN 5 MG TABLETS PO SCH (21:15)
[2020-06-06] MEDS: THIAMINE HCL 100 MG TABLET (FP) PO SCH (21:15)
[2020-06-07] MEDS: PRENATAL VITAMINS W/ FOLIC ACID TABLET (FP) PO SCH (10:24)
[2020-06-07] MEDS: NICOTINE 7 MG/24 HOURS TOPICAL PATCH TD SCH (10:24)
[2020-06-07] MEDS: hydrOXYzine PAMOATE 25 MG CAPSULE (FP) PO PRN (21:41)
[2020-06-07] MEDS: THIAMINE HCL 100 MG TABLET (FP) PO SCH (21:41)
[2020-06-07] MEDS: MELATONIN 5 MG TABLETS PO SCH (21:41)
[2020-06-08] MEDS: PRENATAL VITAMINS W/ FOLIC ACID TABLET (FP) PO SCH (09:48)
[2020-06-08] MEDS: NICOTINE 7 MG/24 HOURS TOPICAL PATCH TD SCH (09:48)
[2020-06-08] MEDS: hydrOXYzine PAMOATE 25 MG CAPSULE (FP) PO PRN ×2 (09:48→21:20)
[2020-06-08] MEDS: MELATONIN 5 MG TABLETS PO SCH (21:20)
[2020-06-08] MEDS: METHOCARBAMOL 500 MG TABLET PO PRN (21:20)
[2020-06-08] MEDS: THIAMINE HCL 100 MG TABLET (FP) PO SCH (21:20)
[2020-06-09] MEDS: NICOTINE 7 MG/24 HOURS TOPICAL PATCH TD SCH (09:43)
[2020-06-09] MEDS: PRENATAL VITAMINS W/ FOLIC ACID TABLET (FP) PO SCH (09:43)
[2020-06-09] MEDS: hydrOXYzine PAMOATE 25 MG CAPSULE (FP) PO PRN ×2 (09:44→21:15)
[2020-06-09] MEDS: MELATONIN 5 MG TABLETS PO SCH (21:15)
[2020-06-09] MEDS: THIAMINE HCL 100 MG TABLET (FP) PO SCH (21:15)
[2020-06-10 07:13] VITALS: BP 145/90; PULSE 79; TEMP 97.3
[2020-06-10] MEDS: NICOTINE 7 MG/24 HOURS TOPICAL PATCH TD SCH (09:55)
[2020-06-10] MEDS: PRENATAL VITAMINS W/ FOLIC ACID TABLET (FP) PO SCH (09:55)
== END 2020-06-10 10:00 | disposition home or self-care (01) | DRG 772 ==
LOC: YASAS 14:01 → Y5N 14:03
PROVIDERS: ADMIT Allergy & Immunology; ATTEND Allergy & Immunology
PROC: HZ42ZZZ Group Counseling for Substance Abuse Treatment, Cognitive-Behavioral (ICD-10-PCS; principal; 2020-05-17)
DX: F10.20 Alcohol dependence, uncomplicated (principal); K05.10 Chronic gingivitis, plaque induced; K02.9 Dental caries, unspecified; R03.0 Elevated blood-pressure reading, without diagnosis of hypertension
CPT/HCPCS: C9803; U0003

== ENCOUNTER 2020-09-15 11:11 | Inpatient (IN) | payer OTHER ==
[2020-09-15 11:47] VITALS: BMI 27.1
[2020-09-15] MEDS ORDERED: NICOTINE POLACRILEX 2 MG GUM BUC PRN (13:00)
[2020-09-15] MEDS ORDERED: ONDANSETRON *ODT* 4 MG TABLET SL PRN (13:00)
[2020-09-15] MEDS ORDERED: MAG HYDROX/AL HYDROX/SIMETH 30 ML UNIT-DOSE CUP PO PRN (13:00)
[2020-09-15] MEDS ORDERED: chlordiazePOXIDE HCL 25 MG CAPSULE PO PRN (13:00)
[2020-09-15] MEDS ORDERED: MENTHOL/PHENOL 1 EACH UD MM PRN (13:00)
[2020-09-15] MEDS ORDERED: BISMUTH SUBSALICYLATE 524 MG/30 ML UD PO PRN (13:00)
[2020-09-15] MEDS ORDERED: MAGNESIUM CITRATE 300 ML BOTTLE PO PRN (13:00)
[2020-09-15] MEDS ORDERED: MAGNESIUM HYDROX 2400MG/30ML ORAL SUSPENSION 30 ML CUP PO PRN (13:00)
[2020-09-15] MEDS ORDERED: ACETAMINOPHEN 325 MG TABLET (FP) PO PRN ×2 (13:00)
[2020-09-15] MEDS ORDERED: ARTIFICIAL TEARS (POLYVINYL ALCOHOL) OPTH DROPS OU PRN (13:03)
[2020-09-15] MEDS: IBUPROFEN 600 MG TABLET (FP) PO PRN (13:38)
[2020-09-15] MEDS: METHOCARBAMOL 500 MG TABLET PO PRN (13:39)
[2020-09-15] MEDS: hydrOXYzine PAMOATE 25 MG CAPSULE (FP) PO SCH ×3 (15:01→23:31)
[2020-09-15] MEDS: chlordiazePOXIDE HCL 25 MG CAPSULE PO SCH ×3 (17:17→22:43)
[2020-09-15] MEDS: THIAMINE HCL 100 MG TABLET (FP) PO SCH (22:43)
[2020-09-15] MEDS: MELATONIN 5 MG TABLETS PO SCH (22:44)
[2020-09-16] MEDS: chlordiazePOXIDE HCL 25 MG CAPSULE PO SCH ×4 (06:06→22:53)
[2020-09-16] MEDS: hydrOXYzine PAMOATE 25 MG CAPSULE (FP) PO SCH ×5 (06:07→22:53)
[2020-09-16] MEDS: PRENATAL VITAMINS W/ FOLIC ACID TABLET (FP) PO SCH (10:33)
[2020-09-16] MEDS: METHOCARBAMOL 500 MG TABLET PO PRN ×2 (10:34→17:25)
[2020-09-16] MEDS: NICOTINE 7 MG/24 HOURS TOPICAL PATCH TD SCH (10:34)
[2020-09-16 10:48] LABS: CALCIUM 8.6 mg/dL (8.5-10.1); HEMATOCRIT 44.6 % (35.4-49); HEMOGLOBIN 15.5 GM/dL (11.7-16.9); MCHC 34.7 g/dl (32.0-35.9); MEAN CELL VOLUME 95.3 fl (80-96); MEAN PLT VOLUME 8.8 fl (7.5-11.1); PLATELET COUNT 244 K/MM3 (134-434); RBC 4.68 M/mm3 (4.00-5.60); RDW 13.1 % (11.9-15.9); WHITE BLOOD COUNT 3.9 K/mm3 (4.0-10.0)
[2020-09-16 10:49] LABS: ALBUMIN 3.7 g/dl (3.4-5.0); BLOOD UREA NITROGEN 23.7 mg/dL (7-18)
[2020-09-16 10:53] LABS: BILIRUBIN,TOTAL 1.9 mg/dL (0.2-1)
[2020-09-16 10:54] LABS: TOT PROT 7.4 g/dl (6.4-8.2)
[2020-09-16 11:46] LABS: HIV INTERPRETATION NEGATIVE (NEGATIVE)
[2020-09-16] MEDS: IBUPROFEN 600 MG TABLET (FP) PO PRN (17:25)
[2020-09-16] MEDS: MELATONIN 5 MG TABLETS PO SCH (22:53)
[2020-09-16] MEDS: THIAMINE HCL 100 MG TABLET (FP) PO SCH (22:53)
[2020-09-17] MEDS: METHOCARBAMOL 500 MG TABLET PO PRN (06:11)
[2020-09-17] MEDS: chlordiazePOXIDE HCL 25 MG CAPSULE PO SCH ×2 (06:11→10:35)
[2020-09-17] MEDS: hydrOXYzine PAMOATE 25 MG CAPSULE (FP) PO SCH ×2 (06:11→10:35)
[2020-09-17 08:56] VITALS: BP 123/79
[2020-09-17] MEDS: IBUPROFEN 600 MG TABLET (FP) PO PRN (10:31)
[2020-09-17] MEDS: PRENATAL VITAMINS W/ FOLIC ACID TABLET (FP) PO SCH (10:31)
[2020-09-17] MEDS: NICOTINE 7 MG/24 HOURS TOPICAL PATCH TD SCH (10:31)
[2020-09-17] MEDS ORDERED: hydrOXYzine PAMOATE 25 MG CAPSULE (FP) PO PRN (10:36)
[2020-09-17 13:01] VITALS: PULSE 71; TEMP 96.8
[2020-09-18] MEDS ORDERED: chlordiazePOXIDE HCL 10 MG CAPSULE PO PRN
[2020-09-18] MEDS ORDERED: chlordiazePOXIDE HCL 10 MG CAPSULE PO SCH (05:00)
[2020-09-18 10:10] LABS: SARS-CoV-2 NAA Not Detected (Not Detected)
[2020-09-19] MEDS ORDERED: chlordiazePOXIDE HCL 10 MG CAPSULE PO SCH (05:00)
[2020-09-20] MEDS ORDERED: chlordiazePOXIDE HCL 10 MG CAPSULE PO ONE (05:00)
== END 2020-09-17 14:25 | disposition left against medical advice (07) | DRG 770 ==
LOC: YASAS 11:11 → Y3N 13:07
PROVIDERS: ADMIT Allergy & Immunology; ATTEND Allergy & Immunology
PROC: HZ2ZZZZ Detoxification Services for Substance Abuse Treatment (ICD-10-PCS; principal; 2020-09-15)
DX: F10.230 Alcohol dependence with withdrawal, uncomplicated (principal); F17.213 Nicotine dependence, cigarettes, with withdrawal; F10.282 Alcohol dependence with alcohol-induced sleep disorder; F10.24 Alcohol dependence with alcohol-induced mood disorder; I10 Essential (primary) hypertension; H11.32 Conjunctival hemorrhage, left eye; S05.12XD Contusion of eyeball and orbital tissues, left eye, subsequent encounter; W19.XXXD Unspecified fall, subsequent encounter; Y92.85 Railroad track as the place of occurrence of the external cause
CPT/HCPCS: 36415; 80053; 85027; 86780; 87389; C9803; U0003; U0005

== ENCOUNTER 2020-10-14 10:42 | Inpatient (IN) | payer OTHER ==
[2020-10-14 11:09] VITALS: BMI 25.4
[2020-10-14] MEDS ORDERED: BISMUTH SUBSALICYLATE 524 MG/30 ML PO PRN (12:40)
[2020-10-14] MEDS ORDERED: NICOTINE POLACRILEX 2 MG GUM BUC PRN (12:40)
[2020-10-14] MEDS ORDERED: MAGNESIUM CITRATE 300 ML BOTTLE PO PRN (12:40)
[2020-10-14] MEDS ORDERED: MENTHOL/PHENOL 1 EACH UD MM PRN (12:40)
[2020-10-14] MEDS ORDERED: MAGNESIUM HYDROX 2400MG/30ML ORAL SUSPENSION 30 ML CUP PO PRN (12:40)
[2020-10-14] MEDS ORDERED: ACETAMINOPHEN 325 MG TABLET (FP) PO PRN (12:40)
[2020-10-14] MEDS ORDERED: MAG HYDROX/AL HYDROX/SIMETH 30 ML UNIT-DOSE CUP PO PRN (12:40)
[2020-10-14] MEDS ORDERED: diazePAM 5 MG TABLET PO PRN (12:40)
[2020-10-14] MEDS: ONDANSETRON *ODT* 4 MG TABLET SL PRN (14:02)
[2020-10-14] MEDS: IBUPROFEN 400 MG TABLET (FP) PO PRN (14:02)
[2020-10-14] MEDS: diazePAM 5 MG TABLET PO SCH ×3 (14:02→22:55)
[2020-10-14] MEDS: PRENATAL VITAMINS W/ FOLIC ACID TABLET (FP) PO SCH (14:05)
[2020-10-14] MEDS: hydrOXYzine PAMOATE 25 MG CAPSULE (FP) PO SCH ×3 (14:05→22:56)
[2020-10-14] MEDS: NICOTINE 21 MG/24 HOURS TOPICAL PATCH TD SCH (14:05)
[2020-10-14 14:35] LABS: HEMATOCRIT 46.2 % (35.4-49); HEMOGLOBIN 15.5 GM/dL (11.7-16.9); MCH 32.3 pg (25.7-33.7); MCHC 33.5 g/dl (32.0-35.9); MEAN CELL VOLUME 96.6 fl (80-96); MEAN PLT VOLUME 9.1 fl (7.5-11.1); PLATELET COUNT 273 10^3/uL (134-434); RBC 4.79 M/mm3 (4.00-5.60)
[2020-10-14 14:44] LABS: ALBUMIN 4.5 g/dl (3.4-5.0); BLOOD UREA NITROGEN 15.7 mg/dL (7-18); CALCIUM 9.3 mg/dL (8.5-10.1)
[2020-10-14 14:48] LABS: CREATININE 1.1 mg/dL (0.55-1.3)
[2020-10-14 14:49] LABS: BILIRUBIN,TOTAL 1.1 mg/dL (0.2-1); TOT PROT 8.3 g/dl (6.4-8.2)
[2020-10-14 15:33] LABS: HIV INTERPRETATION NEGATIVE (NEGATIVE)
[2020-10-14] MEDS: THIAMINE HCL 100 MG TABLET (FP) PO SCH (22:55)
[2020-10-14] MEDS: MELATONIN 5 MG TABLETS PO SCH (22:56)
[2020-10-14] MEDS: ACETAMINOPHEN 325 MG TABLET (FP) PO PRN (22:59)
[2020-10-15] MEDS: diazePAM 5 MG TABLET PO SCH ×4 (05:47→22:44)
[2020-10-15] MEDS: hydrOXYzine PAMOATE 25 MG CAPSULE (FP) PO SCH ×5 (05:47→22:43)
[2020-10-15] MEDS ORDERED: cloNIDine HCL 0.1 MG TABLET PO PRN (09:11)
[2020-10-15] MEDS: PRENATAL VITAMINS W/ FOLIC ACID TABLET (FP) PO SCH (10:34)
[2020-10-15] MEDS: ACETAMINOPHEN 325 MG TABLET (FP) PO PRN (10:35)
[2020-10-15] MEDS: NICOTINE 21 MG/24 HOURS TOPICAL PATCH TD SCH (10:35)
[2020-10-15] MEDS: ONDANSETRON *ODT* 4 MG TABLET SL PRN (10:36)
[2020-10-15] MEDS: METHOCARBAMOL 500 MG TABLET PO PRN (10:36)
[2020-10-15] MEDS: THIAMINE HCL 100 MG TABLET (FP) PO SCH (22:43)
[2020-10-15] MEDS: MELATONIN 5 MG TABLETS PO SCH (22:43)
[2020-10-16] MEDS: diazePAM 5 MG TABLET PO SCH ×3 (05:17→22:12)
[2020-10-16] MEDS: hydrOXYzine PAMOATE 25 MG CAPSULE (FP) PO SCH ×5 (05:17→22:12)
[2020-10-16] MEDS: PRENATAL VITAMINS W/ FOLIC ACID TABLET (FP) PO SCH (10:55)
[2020-10-16] MEDS: ACETAMINOPHEN 325 MG TABLET (FP) PO PRN (10:55)
[2020-10-16] MEDS: NICOTINE 21 MG/24 HOURS TOPICAL PATCH TD SCH (10:55)
[2020-10-16] MEDS: THIAMINE HCL 100 MG TABLET (FP) PO SCH (22:11)
[2020-10-16] MEDS: MELATONIN 5 MG TABLETS PO SCH (22:12)
[2020-10-17] MEDS: hydrOXYzine PAMOATE 25 MG CAPSULE (FP) PO SCH ×5 (05:33→22:18)
[2020-10-17] MEDS: diazePAM 5 MG TABLET PO SCH ×2 (05:33→17:45)
[2020-10-17] MEDS: IBUPROFEN 400 MG TABLET (FP) PO PRN (05:35)
[2020-10-17] MEDS: PRENATAL VITAMINS W/ FOLIC ACID TABLET (FP) PO SCH (10:02)
[2020-10-17] MEDS: NICOTINE 21 MG/24 HOURS TOPICAL PATCH TD SCH (10:03)
[2020-10-17] MEDS: ACETAMINOPHEN 325 MG TABLET (FP) PO PRN (10:04)
[2020-10-17] MEDS: METHOCARBAMOL 500 MG TABLET PO PRN (17:47)
[2020-10-17] MEDS: THIAMINE HCL 100 MG TABLET (FP) PO SCH (22:18)
[2020-10-17] MEDS: MELATONIN 5 MG TABLETS PO SCH (22:18)
[2020-10-18] MEDS: IBUPROFEN 400 MG TABLET (FP) PO PRN (00:26)
[2020-10-18] MEDS: hydrOXYzine PAMOATE 25 MG CAPSULE (FP) PO SCH (05:35)
[2020-10-18] MEDS ORDERED: diazePAM 5 MG TABLET PO ONE (06:00)
[2020-10-18 09:21] VITALS: BP 136/72; PULSE 63; TEMP 98
== END 2020-10-18 10:30 | disposition home or self-care (01) | DRG 775 ==
LOC: YASAS 10:42 → Y6N 11:52
PROVIDERS: ADMIT Allergy & Immunology; ATTEND Allergy & Immunology
PROC: HZ2ZZZZ Detoxification Services for Substance Abuse Treatment (ICD-10-PCS; principal; 2020-10-14)
DX: F10.230 Alcohol dependence with withdrawal, uncomplicated (principal); F17.210 Nicotine dependence, cigarettes, uncomplicated; F10.220 Alcohol dependence with intoxication, uncomplicated; F10.282 Alcohol dependence with alcohol-induced sleep disorder; F10.24 Alcohol dependence with alcohol-induced mood disorder; F31.9 Bipolar disorder, unspecified; I10 Essential (primary) hypertension; H11.32 Conjunctival hemorrhage, left eye; R73.9 Hyperglycemia, unspecified; R74.8 Abnormal levels of other serum enzymes; S02.85XD Fracture of orbit, unspecified, subsequent encounter for fracture with routine healing; Y09 Assault by unspecified means; Z59.0 Homelessness
CPT/HCPCS: 36415; 80053; 82962; 85027; 86780; 87389; C9803; Q0162; U0003; U0005

== ENCOUNTER 2021-01-30 17:33 | Inpatient (IN) | payer OTHER ==
[2021-01-30] MEDS ORDERED: MENTHOL/PHENOL 1 EACH UD MM PRN (20:11)
[2021-01-30] MEDS ORDERED: MAGNESIUM HYDROX 2400MG/30ML ORAL SUSPENSION 30 ML CUP PO PRN (20:11)
[2021-01-30] MEDS ORDERED: ACETAMINOPHEN 325 MG TABLET (FP) PO PRN ×2 (20:11)
[2021-01-30] MEDS ORDERED: ONDANSETRON *ODT* 4 MG TABLET SL PRN (20:11)
[2021-01-30] MEDS ORDERED: IBUPROFEN 400 MG TABLET (FP) PO PRN (20:11)
[2021-01-30] MEDS ORDERED: MAGNESIUM CITRATE 300 ML BOTTLE PO PRN (20:11)
[2021-01-30] MEDS ORDERED: NICOTINE POLACRILEX 2 MG GUM BUC PRN (20:11)
[2021-01-30] MEDS ORDERED: BISMUTH SUBSALICYLATE 524 MG/30 ML PO PRN (20:11)
[2021-01-30] MEDS ORDERED: METHOCARBAMOL 500 MG TABLET PO PRN (20:11)
[2021-01-30] MEDS ORDERED: hydrOXYzine PAMOATE 25 MG CAPSULE (FP) PO PRN (20:11)
[2021-01-30] MEDS ORDERED: MAG HYDROX/AL HYDROX/SIMETH 30 ML UNIT-DOSE CUP PO PRN (20:11)
[2021-01-30] MEDS ORDERED: diazePAM 5 MG TABLET PO PRN (20:12)
[2021-01-30 20:48] VITALS: BMI 27.4
[2021-01-30] MEDS: THIAMINE HCL 100 MG TABLET (FP) PO SCH (23:03)
[2021-01-30] MEDS: MELATONIN 5 MG TABLETS PO SCH (23:03)
[2021-01-30] MEDS: diazePAM 5 MG TABLET PO SCH (23:04)
[2021-01-31] MEDS: diazePAM 5 MG TABLET PO SCH ×4 (05:33→22:12)
[2021-01-31 10:02] LABS: HEMOGLOBIN 14.8 GM/dL (11.7-16.9); MCH 34.4 pg (25.7-33.7); MCHC 35.3 g/dl (32.0-35.9); MEAN CELL VOLUME 97.5 fl (80-96); MEAN PLT VOLUME 8.2 fl (7.5-11.1); PLATELET COUNT 223 10^3/uL (134-434); WHITE BLOOD COUNT 2.8 K/mm3 (4.0-10.0)
[2021-01-31] MEDS: PRENATAL VITAMINS W/ FOLIC ACID TABLET (FP) PO SCH (10:08)
[2021-01-31 10:17] LABS: ALBUMIN 3.7 g/dl (3.4-5.0); BLOOD UREA NITROGEN 15.2 mg/dL (7-18); CALCIUM 8.9 mg/dL (8.5-10.1)
[2021-01-31 10:19] LABS: BILIRUBIN,TOTAL 1.1 mg/dL (0.2-1); TOT PROT 7.5 g/dl (6.4-8.2)
[2021-01-31 10:20] LABS: CREATININE 0.9 mg/dL (0.55-1.3)
[2021-01-31] MEDS: MELATONIN 5 MG TABLETS PO SCH (22:12)
[2021-01-31] MEDS: THIAMINE HCL 100 MG TABLET (FP) PO SCH (22:12)
[2021-02-01] MEDS: diazePAM 5 MG TABLET PO SCH ×2 (05:49→17:39)
[2021-02-01] MEDS: PRENATAL VITAMINS W/ FOLIC ACID TABLET (FP) PO SCH (10:33)
[2021-02-01] MEDS: THIAMINE HCL 100 MG TABLET (FP) PO SCH (22:15)
[2021-02-01] MEDS: MELATONIN 5 MG TABLETS PO SCH (22:15)
[2021-02-02] MEDS ORDERED: diazePAM 5 MG TABLET PO ONE (06:00)
[2021-02-02] MEDS: PRENATAL VITAMINS W/ FOLIC ACID TABLET (FP) PO SCH (10:38)
[2021-02-02] MEDS: MELATONIN 5 MG TABLETS PO SCH (22:08)
[2021-02-02] MEDS: THIAMINE HCL 100 MG TABLET (FP) PO SCH (22:08)
[2021-02-03 09:47] VITALS: BP 144/78; PULSE 82; TEMP 96.9
[2021-02-03] MEDS: PRENATAL VITAMINS W/ FOLIC ACID TABLET (FP) PO SCH (10:14)
== END 2021-02-03 10:18 | disposition home or self-care (01) | DRG 775 ==
LOC: YASAS 17:33 → Y3N 21:08
PROVIDERS: ADMIT Allergy & Immunology; ATTEND Allergy & Immunology
PROC: HZ2ZZZZ Detoxification Services for Substance Abuse Treatment (ICD-10-PCS; principal; 2021-01-30)
DX: F10.230 Alcohol dependence with withdrawal, uncomplicated (principal); F10.220 Alcohol dependence with intoxication, uncomplicated; F17.210 Nicotine dependence, cigarettes, uncomplicated; D72.819 Decreased white blood cell count, unspecified; R74.01 Elevation of levels of liver transaminase levels; R74.8 Abnormal levels of other serum enzymes; Z87.81 Personal history of (healed) traumatic fracture
CPT/HCPCS: 36415; 80053; 85027; 86780; C9803; U0003; U0005

== ENCOUNTER 2021-03-18 22:22 | Inpatient (IN) | payer OTHER ==
[2021-03-19] VITALS: BMI 25.2
[2021-03-19] MEDS ORDERED: BISMUTH SUBSALICYLATE 524 MG/30 ML PO PRN (01:42)
[2021-03-19] MEDS ORDERED: IBUPROFEN 400 MG TABLET (FP) PO PRN (01:42)
[2021-03-19] MEDS ORDERED: MAG HYDROX/AL HYDROX/SIMETH 30 ML UNIT-DOSE CUP PO PRN (01:42)
[2021-03-19] MEDS ORDERED: NICOTINE POLACRILEX 2 MG GUM BUC PRN (01:42)
[2021-03-19] MEDS ORDERED: ONDANSETRON *ODT* 4 MG TABLET SL PRN (01:42)
[2021-03-19] MEDS ORDERED: MENTHOL/PHENOL 1 EACH UD MM PRN (01:42)
[2021-03-19] MEDS ORDERED: MAGNESIUM CITRATE 300 ML BOTTLE PO PRN (01:42)
[2021-03-19] MEDS ORDERED: MAGNESIUM HYDROX 2400MG/30ML ORAL SUSPENSION 30 ML CUP PO PRN (01:42)
[2021-03-19] MEDS ORDERED: ACETAMINOPHEN 325 MG TABLET (FP) PO PRN ×2 (01:42)
[2021-03-19] MEDS ORDERED: METHOCARBAMOL 500 MG TABLET PO PRN (01:42)
[2021-03-19] MEDS ORDERED: diazePAM 5 MG TABLET PO PRN (01:46)
[2021-03-19] MEDS: diazePAM 5 MG TABLET PO SCH ×4 (06:00→22:07)
[2021-03-19] MEDS: PRENATAL VITAMINS W/ FOLIC ACID TABLET (FP) PO SCH (10:12)
[2021-03-19] MEDS: NICOTINE 14 MG/24 HOURS TOPICAL PATCH TD SCH (10:12)
[2021-03-19] MEDS ORDERED: FLU VACC QS2021-22(6MOS UP)/PF 60 MCG/0.5 ML SYRINGE IM ONE (12:00)
[2021-03-19 12:13] LABS: HIV INTERPRETATION NEGATIVE (NEGATIVE)
[2021-03-19 13:42] LABS: HEMATOCRIT 41.6 % (35.4-49); MCH 34.3 pg (25.7-33.7); MCHC 33.7 g/dl (32.0-35.9); MEAN CELL VOLUME 101.8 fl (80-96); MEAN PLT VOLUME 8.2 fl (7.5-11.1); PLATELET COUNT 179 10^3/uL (134-434); RBC 4.09 M/mm3 (4.00-5.60); RDW 14.7 % (11.9-15.9); WHITE BLOOD COUNT 2.6 K/mm3 (4.0-10.0)
[2021-03-19 13:55] LABS: BLOOD UREA NITROGEN 15.2 mg/dL (7-18); CALCIUM 8.2 mg/dL (8.5-10.1)
[2021-03-19 13:56] LABS: ALBUMIN 3.3 g/dl (3.4-5.0)
[2021-03-19 13:58] LABS: CREATININE 0.8 mg/dL (0.55-1.3)
[2021-03-19 13:59] LABS: BILIRUBIN,TOTAL 0.6 mg/dL (0.2-1); TOT PROT 6.9 g/dl (6.4-8.2)
[2021-03-19] MEDS: THIAMINE HCL 100 MG TABLET (FP) PO SCH (22:06)
[2021-03-19] MEDS: MELATONIN 5 MG TABLETS PO SCH (22:06)
[2021-03-20] MEDS: diazePAM 5 MG TABLET PO SCH ×3 (05:37→22:09)
[2021-03-20] MEDS: PRENATAL VITAMINS W/ FOLIC ACID TABLET (FP) PO SCH (10:33)
[2021-03-20] MEDS: NICOTINE 14 MG/24 HOURS TOPICAL PATCH TD SCH (10:33)
[2021-03-20 11:02] LABS: HEMOGLOBIN 14.7 GM/dL (11.7-16.9); MCH 34.7 pg (25.7-33.7); MCHC 34.2 g/dl (32.0-35.9); MEAN CELL VOLUME 101.5 fl (80-96); MEAN PLT VOLUME 8.5 fl (7.5-11.1); PLATELET COUNT 182 10^3/uL (134-434); RBC 4.24 M/mm3 (4.00-5.60); RDW 14.5 % (11.9-15.9); WHITE BLOOD COUNT 3.3 K/mm3 (4.0-10.0)
[2021-03-20] MEDS: MELATONIN 5 MG TABLETS PO SCH (22:08)
[2021-03-20] MEDS: THIAMINE HCL 100 MG TABLET (FP) PO SCH (22:08)
[2021-03-21] MEDS: diazePAM 5 MG TABLET PO SCH ×2 (05:17→17:41)
[2021-03-21] MEDS: PRENATAL VITAMINS W/ FOLIC ACID TABLET (FP) PO SCH (10:20)
[2021-03-21] MEDS: NICOTINE 14 MG/24 HOURS TOPICAL PATCH TD SCH (10:20)
[2021-03-21] MEDS ORDERED: FLU VACC QS2021-22(6MOS UP)/PF 60 MCG/0.5 ML SYRINGE IM ONE (12:00)
[2021-03-21] MEDS ORDERED: NICOTINE 10 MG CARTRIDGE (INHALER) IH PRN (20:57)
[2021-03-21] MEDS: THIAMINE HCL 100 MG TABLET (FP) PO SCH (22:11)
[2021-03-21] MEDS: MELATONIN 5 MG TABLETS PO SCH (22:11)
[2021-03-22] MEDS ORDERED: diazePAM 5 MG TABLET PO ONE (06:00)
[2021-03-22 06:15] VITALS: BP 134/81; PULSE 53; TEMP 97.5
[2021-03-22] MEDS: PRENATAL VITAMINS W/ FOLIC ACID TABLET (FP) PO SCH (09:53)
== END 2021-03-22 09:28 | disposition home or self-care (01) | DRG 775 ==
LOC: YASAS 22:22 → Y3N 03-19 01:23
PROVIDERS: ADMIT Allergy & Immunology; ATTEND Allergy & Immunology
PROC: HZ2ZZZZ Detoxification Services for Substance Abuse Treatment (ICD-10-PCS; principal; 2021-03-19)
DX: F10.230 Alcohol dependence with withdrawal, uncomplicated (principal); F17.210 Nicotine dependence, cigarettes, uncomplicated; F10.24 Alcohol dependence with alcohol-induced mood disorder; I10 Essential (primary) hypertension; D72.819 Decreased white blood cell count, unspecified; R74.01 Elevation of levels of liver transaminase levels; Z86.59 Personal history of other mental and behavioral disorders; Z59.02 Unsheltered homelessness; Z56.0 Unemployment, unspecified
CPT/HCPCS: 36415; 80053; 85027; 86780; 87389; 93005; 93010; C9803; U0003; U0005

== ENCOUNTER 2021-06-08 08:47 | Inpatient (IN) | payer OTHER ==
[2021-06-07 15:08] VITALS: BMI 25.2
[~2021-06-08 08:47] MED LIST changes: +BISMUTH SUBSALICYLATE 524 MG/30 ML PO PRN; +DICYCLOMINE HCL 10 MG CAPSULE PO PRN; -LOPERAMIDE HCL 2 MG CAPSULE PO PRN; +METHOCARBAMOL 500 MG TABLET PO PRN; +METOPROLOL TARTRATE 25 MG TABLET (FP) PO ONE; +ONDANSETRON *ODT* 4 MG TABLET SL PRN; -P-EPHED 60MG/TRIPROLIDI 2.5MG TABLET PO PRN; -guaiFENesin 200 MG/10 ML 10 ML UNIT-DOSE CUPS PO PRN; +hydrOXYzine PAMOATE 25 MG CAPSULE (FP) PO PRN
[2021-06-08] MEDS ORDERED: diazePAM 5 MG TABLET PO PRN (10:28)
[2021-06-08 12:05] LABS: HEMATOCRIT 45.2 % (35.4-49); HEMOGLOBIN 15.2 GM/dL (11.7-16.9); MCH 33.8 pg (25.7-33.7); MCHC 33.6 g/dl (32.0-35.9); MEAN CELL VOLUME 100.4 fl (80-96); MEAN PLT VOLUME 9.2 fl (7.5-11.1); PLATELET COUNT 243 10^3/uL (134-434); RDW 12.8 % (11.9-15.9); WHITE BLOOD COUNT 3.1 K/mm3 (4.0-10.0)
[2021-06-08] MEDS: diazePAM 5 MG TABLET PO SCH ×3 (12:05→23:09)
[2021-06-08] MEDS: PRENATAL VITAMINS W/ FOLIC ACID TABLET (FP) PO SCH (12:05)
[2021-06-08 12:10] LABS: ALBUMIN 3.7 g/dl (3.4-5.0); CALCIUM 9.1 mg/dL (8.5-10.1)
[2021-06-08 12:11] LABS: BLOOD UREA NITROGEN 19.6 mg/dL (7-18)
[2021-06-08 12:13] LABS: CREATININE 0.9 mg/dL (0.55-1.3)
[2021-06-08 12:15] LABS: TOT PROT 7.4 g/dl (6.4-8.2)
[2021-06-08 12:24] LABS: BILIRUBIN,TOTAL 1.7 mg/dL (0.2-1)
[2021-06-08] MEDS: THIAMINE HCL 100 MG TABLET (FP) PO SCH (23:09)
[2021-06-08] MEDS: MELATONIN 5 MG TABLETS PO SCH (23:09)
[2021-06-09] MEDS: diazePAM 5 MG TABLET PO SCH ×4 (05:43→22:27)
[2021-06-09] MEDS: PRENATAL VITAMINS W/ FOLIC ACID TABLET (FP) PO SCH (11:14)
[2021-06-09] MEDS: amLODIPine BESYLATE 5 MG TABLET (FP) PO SCH (14:00)
[2021-06-09] MEDS: THIAMINE HCL 100 MG TABLET (FP) PO SCH (22:27)
[2021-06-09] MEDS: MELATONIN 5 MG TABLETS PO SCH (22:27)
[2021-06-10] MEDS: diazePAM 5 MG TABLET PO SCH ×2 (05:43→18:29)
[2021-06-10] MEDS: amLODIPine BESYLATE 5 MG TABLET (FP) PO SCH (10:19)
[2021-06-10] MEDS: PRENATAL VITAMINS W/ FOLIC ACID TABLET (FP) PO SCH (10:19)
[2021-06-10] MEDS: THIAMINE HCL 100 MG TABLET (FP) PO SCH (23:30)
[2021-06-10] MEDS: MELATONIN 5 MG TABLETS PO SCH (23:30)
[2021-06-11] MEDS ORDERED: diazePAM 5 MG TABLET PO ONE (06:00)
[2021-06-11] MEDS: PRENATAL VITAMINS W/ FOLIC ACID TABLET (FP) PO SCH (10:29)
[2021-06-11] MEDS: amLODIPine BESYLATE 5 MG TABLET (FP) PO SCH (10:29)
[2021-06-11 13:24] VITALS: BP 150/94; PULSE 89; TEMP 98.3
== END 2021-06-11 13:20 | disposition other institution (70) | DRG 775 ==
LOC: YASAS 08:47 → Y6N 09:50
PROVIDERS: ADMIT Allergy & Immunology; ATTEND Allergy & Immunology
PROC: HZ2ZZZZ Detoxification Services for Substance Abuse Treatment (ICD-10-PCS; principal; 2021-06-08)
DX: F10.230 Alcohol dependence with withdrawal, uncomplicated (principal); F17.213 Nicotine dependence, cigarettes, with withdrawal; D72.819 Decreased white blood cell count, unspecified; I10 Essential (primary) hypertension; Z59.00 Homelessness unspecified
CPT/HCPCS: 36415; 80053; 82962; 85027; 86780; C9803; U0003; U0005

== ENCOUNTER 2021-06-11 12:23 | Inpatient (IN) | payer OTHER ==
[2021-06-11] MEDS ORDERED: guaiFENesin 200 MG/10 ML 10 ML UNIT-DOSE CUPS PO PRN (13:32)
[2021-06-11] MEDS ORDERED: NICOTINE 10 MG CARTRIDGE (INHALER) IH PRN (13:32)
[2021-06-11] MEDS ORDERED: P-EPHED 60MG/TRIPROLIDI 2.5MG TABLET PO PRN (13:32)
[2021-06-11] MEDS ORDERED: ACETAMINOPHEN 325 MG TABLET (FP) PO PRN (13:32)
[2021-06-11] MEDS ORDERED: IBUPROFEN 400 MG TABLET (FP) PO PRN (13:32)
[2021-06-11] MEDS ORDERED: MAGNESIUM CITRATE 300 ML BOTTLE PO PRN (13:32)
[2021-06-11] MEDS ORDERED: MAG HYDROX/AL HYDROX/SIMETH 30 ML UNIT-DOSE CUP PO PRN (13:32)
[2021-06-11] MEDS ORDERED: MAGNESIUM HYDROX 2400MG/30ML ORAL SUSPENSION 30 ML CUP PO PRN (13:32)
[2021-06-11] MEDS ORDERED: LOPERAMIDE HCL 2 MG CAPSULE PO PRN (13:32)
[2021-06-11] MEDS: hydrOXYzine PAMOATE 25 MG CAPSULE (FP) PO SCH ×3 (14:10→21:36)
[2021-06-11] MEDS: THIAMINE HCL 100 MG TABLET (FP) PO SCH (21:36)
[2021-06-11] MEDS: MELATONIN 5 MG TABLETS PO SCH (21:36)
[2021-06-12] MEDS: hydrOXYzine PAMOATE 25 MG CAPSULE (FP) PO SCH ×5 (06:14→21:10)
[2021-06-12] MEDS: PRENATAL VITAMINS W/ FOLIC ACID TABLET (FP) PO SCH (10:13)
[2021-06-12] MEDS: amLODIPine BESYLATE 5 MG TABLET (FP) PO SCH (10:13)
[2021-06-12] MEDS: NICOTINE 7 MG/24 HOURS TOPICAL PATCH TD SCH (10:14)
[2021-06-12] MEDS: MELATONIN 5 MG TABLETS PO SCH (21:09)
[2021-06-12] MEDS: THIAMINE HCL 100 MG TABLET (FP) PO SCH (21:10)
[2021-06-13] MEDS: hydrOXYzine PAMOATE 25 MG CAPSULE (FP) PO SCH ×5 (06:30→21:52)
[2021-06-13] MEDS: NICOTINE 7 MG/24 HOURS TOPICAL PATCH TD SCH (09:01)
[2021-06-13] MEDS: amLODIPine BESYLATE 5 MG TABLET (FP) PO SCH (09:04)
[2021-06-13] MEDS: PRENATAL VITAMINS W/ FOLIC ACID TABLET (FP) PO SCH (09:04)
[2021-06-13] MEDS: MELATONIN 5 MG TABLETS PO SCH (21:52)
[2021-06-13] MEDS: THIAMINE HCL 100 MG TABLET (FP) PO SCH (21:52)
[2021-06-14] MEDS: hydrOXYzine PAMOATE 25 MG CAPSULE (FP) PO SCH ×5 (06:26→22:09)
[2021-06-14] MEDS: PRENATAL VITAMINS W/ FOLIC ACID TABLET (FP) PO SCH (09:44)
[2021-06-14] MEDS: amLODIPine BESYLATE 5 MG TABLET (FP) PO SCH (09:44)
[2021-06-14] MEDS: NICOTINE 7 MG/24 HOURS TOPICAL PATCH TD SCH (09:44)
[2021-06-14] MEDS: THIAMINE HCL 100 MG TABLET (FP) PO SCH (21:27)
[2021-06-14] MEDS: MELATONIN 5 MG TABLETS PO SCH (21:27)
[2021-06-15] MEDS: hydrOXYzine PAMOATE 25 MG CAPSULE (FP) PO SCH ×5 (06:31→22:35)
[2021-06-15] MEDS: PRENATAL VITAMINS W/ FOLIC ACID TABLET (FP) PO SCH (10:07)
[2021-06-15] MEDS: amLODIPine BESYLATE 5 MG TABLET (FP) PO SCH (10:07)
[2021-06-15] MEDS: NICOTINE 7 MG/24 HOURS TOPICAL PATCH TD SCH (10:07)
[2021-06-15 14:06] LABS: SARS-CoV-2 NAA Not Detected (Not Detected)
[2021-06-15] MEDS: THIAMINE HCL 100 MG TABLET (FP) PO SCH (22:35)
[2021-06-15] MEDS: MELATONIN 5 MG TABLETS PO SCH (22:35)
[2021-06-16] MEDS: hydrOXYzine PAMOATE 25 MG CAPSULE (FP) PO SCH ×5 (06:45→21:42)
[2021-06-16] MEDS: NICOTINE 7 MG/24 HOURS TOPICAL PATCH TD SCH (09:51)
[2021-06-16] MEDS: amLODIPine BESYLATE 5 MG TABLET (FP) PO SCH (09:52)
[2021-06-16] MEDS: PRENATAL VITAMINS W/ FOLIC ACID TABLET (FP) PO SCH (09:53)
[2021-06-16] MEDS: THIAMINE HCL 100 MG TABLET (FP) PO SCH (21:42)
[2021-06-16] MEDS: MELATONIN 5 MG TABLETS PO SCH (21:42)
[2021-06-17] MEDS: hydrOXYzine PAMOATE 25 MG CAPSULE (FP) PO SCH ×3 (06:36→15:10)
[2021-06-17] MEDS: amLODIPine BESYLATE 5 MG TABLET (FP) PO SCH (10:02)
[2021-06-17] MEDS: NICOTINE 7 MG/24 HOURS TOPICAL PATCH TD SCH (10:02)
[2021-06-17] MEDS: PRENATAL VITAMINS W/ FOLIC ACID TABLET (FP) PO SCH (10:02)
[2021-06-17] MEDS: hydrOXYzine PAMOATE 25 MG CAPSULE (FP) PO PRN ×2 (18:24→21:10)
[2021-06-17] MEDS: MELATONIN 5 MG TABLETS PO SCH (21:10)
[2021-06-17] MEDS: THIAMINE HCL 100 MG TABLET (FP) PO SCH (21:10)
[2021-06-18] MEDS: amLODIPine BESYLATE 5 MG TABLET (FP) PO SCH (09:30)
[2021-06-18] MEDS: PRENATAL VITAMINS W/ FOLIC ACID TABLET (FP) PO SCH (09:30)
[2021-06-18] MEDS: NICOTINE 7 MG/24 HOURS TOPICAL PATCH TD SCH (09:30)
[2021-06-18] MEDS: hydrOXYzine PAMOATE 25 MG CAPSULE (FP) PO PRN ×2 (17:19→21:03)
[2021-06-18] MEDS: MELATONIN 5 MG TABLETS PO SCH (21:03)
[2021-06-18] MEDS: THIAMINE HCL 100 MG TABLET (FP) PO SCH (21:03)
[2021-06-19] MEDS: amLODIPine BESYLATE 5 MG TABLET (FP) PO SCH (10:08)
[2021-06-19] MEDS: PRENATAL VITAMINS W/ FOLIC ACID TABLET (FP) PO SCH (10:08)
[2021-06-19] MEDS: NICOTINE 7 MG/24 HOURS TOPICAL PATCH TD SCH (10:08)
[2021-06-19] MEDS: MELATONIN 5 MG TABLETS PO SCH (21:42)
[2021-06-19] MEDS: THIAMINE HCL 100 MG TABLET (FP) PO SCH (21:43)
[2021-06-20] MEDS: hydrOXYzine PAMOATE 25 MG CAPSULE (FP) PO PRN (06:32)
[2021-06-20] MEDS: NICOTINE 7 MG/24 HOURS TOPICAL PATCH TD SCH (10:12)
[2021-06-20] MEDS: amLODIPine BESYLATE 5 MG TABLET (FP) PO SCH (10:12)
[2021-06-20] MEDS: PRENATAL VITAMINS W/ FOLIC ACID TABLET (FP) PO SCH (10:12)
[2021-06-20] MEDS: MELATONIN 5 MG TABLETS PO SCH (21:09)
[2021-06-20] MEDS: THIAMINE HCL 100 MG TABLET (FP) PO SCH (21:09)
[2021-06-21] MEDS: NICOTINE 7 MG/24 HOURS TOPICAL PATCH TD SCH (09:54)
[2021-06-21] MEDS: PRENATAL VITAMINS W/ FOLIC ACID TABLET (FP) PO SCH (09:55)
[2021-06-21] MEDS: amLODIPine BESYLATE 5 MG TABLET (FP) PO SCH (09:55)
[2021-06-21] MEDS ORDERED: CARBAMIDE PEROXIDE 6.5% OTIC 15 ML BOTTLE AS SCH (11:45)
[2021-06-21] MEDS ORDERED: CARBAMIDE PEROXIDE 6.5% OTIC 15 ML BOTTLE AU SCH ×2 (12:00→12:46)
[2021-06-21] MEDS: CARBAMIDE PEROXIDE 6.5% OTIC 15 ML BOTTLE AU SCH ×2 (14:34→21:38)
[2021-06-21] MEDS: THIAMINE HCL 100 MG TABLET (FP) PO SCH (21:38)
[2021-06-21] MEDS: MELATONIN 5 MG TABLETS PO SCH (21:38)
[2021-06-22] MEDS: CARBAMIDE PEROXIDE 6.5% OTIC 15 ML BOTTLE AU SCH ×3 (06:30→21:56)
[2021-06-22] MEDS: PRENATAL VITAMINS W/ FOLIC ACID TABLET (FP) PO SCH (09:18)
[2021-06-22] MEDS: amLODIPine BESYLATE 5 MG TABLET (FP) PO SCH (09:18)
[2021-06-22] MEDS: NICOTINE 7 MG/24 HOURS TOPICAL PATCH TD SCH (09:18)
[2021-06-22] MEDS: THIAMINE HCL 100 MG TABLET (FP) PO SCH (21:55)
[2021-06-22] MEDS: MELATONIN 5 MG TABLETS PO SCH (21:55)
[2021-06-23] MEDS: CARBAMIDE PEROXIDE 6.5% OTIC 15 ML BOTTLE AU SCH ×3 (07:15→22:01)
[2021-06-23] MEDS: PRENATAL VITAMINS W/ FOLIC ACID TABLET (FP) PO SCH (10:09)
[2021-06-23] MEDS: NICOTINE 7 MG/24 HOURS TOPICAL PATCH TD SCH (10:09)
[2021-06-23] MEDS: amLODIPine BESYLATE 5 MG TABLET (FP) PO SCH (10:09)
[2021-06-23] MEDS: MELATONIN 5 MG TABLETS PO SCH (22:01)
[2021-06-23] MEDS: THIAMINE HCL 100 MG TABLET (FP) PO SCH (22:01)
[2021-06-24 07:00] VITALS: TEMP 97.1
[2021-06-24] MEDS: CARBAMIDE PEROXIDE 6.5% OTIC 15 ML BOTTLE AU SCH ×3 (07:06→21:18)
[2021-06-24] MEDS: NICOTINE 7 MG/24 HOURS TOPICAL PATCH TD SCH (09:34)
[2021-06-24] MEDS: amLODIPine BESYLATE 5 MG TABLET (FP) PO SCH (09:34)
[2021-06-24] MEDS: PRENATAL VITAMINS W/ FOLIC ACID TABLET (FP) PO SCH (09:34)
[2021-06-24] MEDS: THIAMINE HCL 100 MG TABLET (FP) PO SCH (21:18)
[2021-06-24] MEDS: MELATONIN 5 MG TABLETS PO SCH (21:18)
[2021-06-25 06:55] VITALS: BP 119/70; PULSE 64
[2021-06-25] MEDS: CARBAMIDE PEROXIDE 6.5% OTIC 15 ML BOTTLE AU SCH (07:44)
[2021-06-25] MEDS: amLODIPine BESYLATE 5 MG TABLET (FP) PO SCH (09:11)
[2021-06-25] MEDS: NICOTINE 7 MG/24 HOURS TOPICAL PATCH TD SCH (09:11)
[2021-06-25] MEDS: PRENATAL VITAMINS W/ FOLIC ACID TABLET (FP) PO SCH (09:11)
== END 2021-06-25 09:16 | disposition home or self-care (01) | DRG 772 ==
LOC: YASAS 12:23 → Y3E 12:24
PROVIDERS: ADMIT Allergy & Immunology; ATTEND Allergy & Immunology
PROC: HZ42ZZZ Group Counseling for Substance Abuse Treatment, Cognitive-Behavioral (ICD-10-PCS; principal; 2021-06-11)
DX: F10.20 Alcohol dependence, uncomplicated (principal); F17.210 Nicotine dependence, cigarettes, uncomplicated; F31.9 Bipolar disorder, unspecified; I10 Essential (primary) hypertension; H61.23 Impacted cerumen, bilateral; R73.9 Hyperglycemia, unspecified; Z59.00 Homelessness unspecified
CPT/HCPCS: 82962; 83036; C9803; U0003; U0005

== ENCOUNTER 2021-10-22 14:41 | Inpatient (IN) | payer OTHER ==
[2021-10-22 15:24] VITALS: BMI 28.2
[2021-10-22] MEDS ORDERED: BISMUTH SUBSALICYLATE 524 MG/30 ML PO PRN (18:01)
[2021-10-22] MEDS ORDERED: LOPERAMIDE HCL 2 MG CAPSULE PO PRN (18:01)
[2021-10-22] MEDS ORDERED: MAGNESIUM CITRATE 300 ML BOTTLE PO PRN (18:01)
[2021-10-22] MEDS ORDERED: NICOTINE POLACRILEX 2 MG GUM BUC PRN (18:01)
[2021-10-22] MEDS ORDERED: ONDANSETRON *ODT* 4 MG TABLET SL PRN (18:01)
[2021-10-22] MEDS ORDERED: ACETAMINOPHEN 325 MG TABLET (FP) PO PRN ×2 (18:01)
[2021-10-22] MEDS ORDERED: IBUPROFEN 600 MG TABLET (FP) PO PRN (18:01)
[2021-10-22] MEDS ORDERED: IBUPROFEN 400 MG TABLET (FP) PO PRN (18:01)
[2021-10-22] MEDS ORDERED: NICOTINE 10 MG CARTRIDGE (INHALER) IH PRN (18:01)
[2021-10-22] MEDS ORDERED: DICYCLOMINE HCL 10 MG CAPSULE PO PRN (18:01)
[2021-10-22] MEDS ORDERED: MAGNESIUM HYDROX 2400MG/30ML ORAL SUSPENSION 30 ML CUP PO PRN (18:01)
[2021-10-22] MEDS ORDERED: BENZOCAINE/MENTHOL (CHLORASEPTIC ) LOZENGE MM PRN (18:01)
[2021-10-22] MEDS ORDERED: MAG HYDROX/AL HYDROX/SIMETH 30 ML UNIT-DOSE CUP PO PRN (18:01)
[2021-10-22] MEDS ORDERED: BENZOCAINE 20 % GEL TUBE MM PRN (18:03)
[2021-10-22] MEDS: hydrOXYzine PAMOATE 25 MG CAPSULE (FP) PO PRN (19:20)
[2021-10-22] MEDS: amLODIPine BESYLATE 5 MG TABLET (FP) PO SCH (19:22)
[2021-10-22] MEDS: diazePAM 5 MG TABLET PO SCH (22:56)
[2021-10-22] MEDS: THIAMINE HCL 100 MG TABLET (FP) PO SCH (22:56)
[2021-10-23] MEDS: diazePAM 5 MG TABLET PO SCH ×4 (05:48→22:22)
[2021-10-23] MEDS: AMOX TR/POT CLAV 500MG/125MG TABLETS (FP) PO SCH ×3 (07:30→17:42)
[2021-10-23] MEDS: hydrOXYzine PAMOATE 25 MG CAPSULE (FP) PO PRN (10:06)
[2021-10-23] MEDS: PRENATAL VITAMINS W/ FOLIC ACID TABLET (FP) PO SCH (10:06)
[2021-10-23] MEDS: METHOCARBAMOL 500 MG TABLET PO PRN (10:06)
[2021-10-23] MEDS: amLODIPine BESYLATE 5 MG TABLET (FP) PO SCH (10:06)
[2021-10-23 12:41] LABS: CALCIUM 9.2 mg/dL (8.5-10.1)
[2021-10-23 12:42] LABS: ALBUMIN 3.6 g/dl (3.4-5.0)
[2021-10-23 12:44] LABS: CREATININE 1.3 mg/dL (0.55-1.3)
[2021-10-23 12:46] LABS: BILIRUBIN,TOTAL 1.4 mg/dL (0.2-1); TOT PROT 7.1 g/dl (6.4-8.2)
[2021-10-23 12:51] LABS: HEMATOCRIT 41.9 % (35.4-49); HEMOGLOBIN 14.4 GM/dL (11.7-16.9); MCH 33.4 pg (25.7-33.7); MCHC 34.5 g/dl (32.0-35.9); MEAN CELL VOLUME 96.8 fl (80-96); MEAN PLT VOLUME 8.1 fl (7.5-11.1); PLATELET COUNT 196 10^3/uL (134-434); RBC 4.33 M/mm3 (4.00-5.60); RDW 14.3 % (11.9-15.9); WHITE BLOOD COUNT 3.6 K/mm3 (4.0-10.0)
[2021-10-23] MEDS: MELATONIN 5 MG TABLETS PO PRN (22:21)
[2021-10-23] MEDS: THIAMINE HCL 100 MG TABLET (FP) PO SCH (22:21)
[2021-10-24] MEDS: diazePAM 5 MG TABLET PO SCH ×3 (05:50→22:50)
[2021-10-24] MEDS: AMOX TR/POT CLAV 500MG/125MG TABLETS (FP) PO SCH ×3 (07:14→17:21)
[2021-10-24] MEDS: diazePAM 5 MG TABLET PO PRN ×2 (10:15→17:21)
[2021-10-24] MEDS: PRENATAL VITAMINS W/ FOLIC ACID TABLET (FP) PO SCH (10:15)
[2021-10-24] MEDS: hydrOXYzine PAMOATE 25 MG CAPSULE (FP) PO PRN ×2 (10:16→17:20)
[2021-10-24] MEDS: amLODIPine BESYLATE 5 MG TABLET (FP) PO SCH (10:16)
[2021-10-24] MEDS: METHOCARBAMOL 500 MG TABLET PO PRN (10:16)
[2021-10-24] MEDS ORDERED: METOPROLOL TARTRATE 50 MG TABLET (FP) PO ONE (18:27)
[2021-10-24] MEDS: THIAMINE HCL 100 MG TABLET (FP) PO SCH (22:50)
[2021-10-25] MEDS: diazePAM 5 MG TABLET PO SCH ×2 (05:53→19:07)
[2021-10-25] MEDS: AMOX TR/POT CLAV 500MG/125MG TABLETS (FP) PO SCH ×3 (08:01→19:06)
[2021-10-25] MEDS: amLODIPine BESYLATE 5 MG TABLET (FP) PO SCH (11:15)
[2021-10-25] MEDS: PRENATAL VITAMINS W/ FOLIC ACID TABLET (FP) PO SCH (11:15)
[2021-10-25] MEDS: THIAMINE HCL 100 MG TABLET (FP) PO SCH (23:06)
[2021-10-25] MEDS: MELATONIN 5 MG TABLETS PO PRN (23:07)
[2021-10-25] MEDS: hydrOXYzine PAMOATE 25 MG CAPSULE (FP) PO PRN (23:08)
[2021-10-26] MEDS ORDERED: diazePAM 5 MG TABLET PO ONE (06:00)
[2021-10-26] MEDS: AMOX TR/POT CLAV 500MG/125MG TABLETS (FP) PO SCH ×2 (07:27→12:42)
[2021-10-26 09:23] VITALS: BP 138/87; PULSE 81; TEMP 96.7
[2021-10-26] MEDS: amLODIPine BESYLATE 5 MG TABLET (FP) PO SCH (10:39)
[2021-10-26] MEDS: PRENATAL VITAMINS W/ FOLIC ACID TABLET (FP) PO SCH (10:40)
== END 2021-10-26 12:26 | disposition home or self-care (01) | DRG 775 ==
LOC: YASAS 14:41 → Y6N 18:40
PROVIDERS: ADMIT Allergy & Immunology; ATTEND Surgery
PROC: HZ2ZZZZ Detoxification Services for Substance Abuse Treatment (ICD-10-PCS; principal; 2021-10-22)
DX: F10.230 Alcohol dependence with withdrawal, uncomplicated (principal); F10.220 Alcohol dependence with intoxication, uncomplicated; F10.282 Alcohol dependence with alcohol-induced sleep disorder; F10.280 Alcohol dependence with alcohol-induced anxiety disorder; F17.213 Nicotine dependence, cigarettes, with withdrawal; I10 Essential (primary) hypertension; B99.9 Unspecified infectious disease; Z56.0 Unemployment, unspecified; Z59.00 Homelessness unspecified
CPT/HCPCS: 36415; 80053; 82962; 85027; 86780; 87811; C9803-CS; U0003; U0005

== ENCOUNTER 2022-02-09 18:13 | Inpatient (IN) | payer OTHER ==
[2022-02-09 18:45] VITALS: BMI 24.3
[2022-02-09] MEDS ORDERED: ONDANSETRON *ODT* 4 MG TABLET SL PRN (19:37)
[2022-02-09] MEDS ORDERED: MAG HYDROX/AL HYDROX/SIMETH 30 ML UNIT-DOSE CUP PO PRN (19:37)
[2022-02-09] MEDS ORDERED: NALOXONE HCL (KLOXXADO) 8 MG SPRAY NS PRN (19:37)
[2022-02-09] MEDS ORDERED: IBUPROFEN 400 MG TABLET (FP) PO PRN (19:37)
[2022-02-09] MEDS ORDERED: DICYCLOMINE HCL 10 MG CAPSULE PO PRN (19:37)
[2022-02-09] MEDS ORDERED: IBUPROFEN 600 MG TABLET (FP) PO PRN (19:37)
[2022-02-09] MEDS ORDERED: BENZOCAINE/MENTHOL (CHLORASEPTIC ) LOZENGE MM PRN (19:37)
[2022-02-09] MEDS ORDERED: MAGNESIUM HYDROX 2400MG/30ML ORAL SUSPENSION 30 ML CUP PO PRN (19:37)
[2022-02-09] MEDS ORDERED: LOPERAMIDE HCL 2 MG CAPSULE PO PRN (19:37)
[2022-02-09] MEDS ORDERED: ACETAMINOPHEN 325 MG TABLET (FP) PO PRN ×2 (19:37)
[2022-02-09] MEDS ORDERED: MAGNESIUM CITRATE 300 ML BOTTLE PO PRN (19:37)
[2022-02-09] MEDS ORDERED: BISMUTH SUBSALICYLATE 524 MG/30 ML PO PRN (19:37)
[2022-02-09] MEDS ORDERED: NICOTINE 10 MG CARTRIDGE (INHALER) IH PRN (19:37)
[2022-02-09] MEDS: NICOTINE 14 MG/24 HOURS TOPICAL PATCH TD SCH (23:17)
[2022-02-09] MEDS: PRENATAL VITAMINS W/ FOLIC ACID TABLET (FP) PO SCH (23:19)
[2022-02-09] MEDS: MELATONIN 5 MG TABLETS PO SCH (23:19)
[2022-02-09] MEDS: THIAMINE HCL 100 MG TABLET (FP) PO SCH (23:19)
[2022-02-09] MEDS: hydrOXYzine PAMOATE 25 MG CAPSULE (FP) PO SCH (23:19)
[2022-02-10] MEDS: hydrOXYzine PAMOATE 25 MG CAPSULE (FP) PO SCH ×5 (05:31→22:17)
[2022-02-10] MEDS ORDERED: chlordiazePOXIDE HCL 25 MG CAPSULE PO PRN (09:18)
[2022-02-10 10:25] LABS: HEMATOCRIT 47.6 % (35.4-49); HEMOGLOBIN 15.8 GM/dL (11.7-16.9); MCH 34.4 pg (25.7-33.7); MCHC 33.3 g/dl (32.0-35.9); MEAN CELL VOLUME 103.2 fl (80-96); MEAN PLT VOLUME 8.5 fl (7.5-11.1); PLATELET COUNT 261 10^3/uL (134-434); RBC 4.61 M/mm3 (4.00-5.60); RDW 13.5 % (11.9-15.9); WHITE BLOOD COUNT 3.2 K/mm3 (4.0-10.0)
[2022-02-10 10:33] LABS: CALCIUM 9.5 mg/dL (8.5-10.1)
[2022-02-10 10:34] LABS: ALBUMIN 3.7 g/dl (3.4-5.0); BLOOD UREA NITROGEN 20.1 mg/dL (7-18)
[2022-02-10] MEDS: PRENATAL VITAMINS W/ FOLIC ACID TABLET (FP) PO SCH (10:37)
[2022-02-10] MEDS: NICOTINE 14 MG/24 HOURS TOPICAL PATCH TD SCH (10:37)
[2022-02-10 10:38] LABS: BILIRUBIN,TOTAL 0.6 mg/dL (0.2-1); TOT PROT 7.5 g/dl (6.4-8.2)
[2022-02-10 11:03] LABS: SYPHILIS W/ RPR CONF NON-REACTIVE (NONREACTIVE)
[2022-02-10] MEDS: chlordiazePOXIDE HCL 25 MG CAPSULE PO SCH ×3 (11:58→22:18)
[2022-02-10 15:35] LABS: HIV INTERPRETATION NEGATIVE (NEGATIVE)
[2022-02-10] MEDS: METHOCARBAMOL 500 MG TABLET PO PRN (22:17)
[2022-02-10] MEDS: MELATONIN 5 MG TABLETS PO SCH (22:17)
[2022-02-10] MEDS: THIAMINE HCL 100 MG TABLET (FP) PO SCH (22:17)
[2022-02-11] MEDS: chlordiazePOXIDE HCL 25 MG CAPSULE PO SCH ×4 (06:54→22:48)
[2022-02-11] MEDS: hydrOXYzine PAMOATE 25 MG CAPSULE (FP) PO SCH ×5 (06:54→22:48)
[2022-02-11] MEDS: PRENATAL VITAMINS W/ FOLIC ACID TABLET (FP) PO SCH (10:26)
[2022-02-11] MEDS: NICOTINE 14 MG/24 HOURS TOPICAL PATCH TD SCH (10:27)
[2022-02-11] MEDS: MELATONIN 5 MG TABLETS PO SCH (22:48)
[2022-02-11] MEDS: THIAMINE HCL 100 MG TABLET (FP) PO SCH (22:48)
[2022-02-12] MEDS: hydrOXYzine PAMOATE 25 MG CAPSULE (FP) PO SCH ×5 (05:37→23:00)
[2022-02-12] MEDS: chlordiazePOXIDE HCL 25 MG CAPSULE PO SCH ×4 (05:37→23:00)
[2022-02-12] MEDS: PRENATAL VITAMINS W/ FOLIC ACID TABLET (FP) PO SCH (10:37)
[2022-02-12] MEDS: NICOTINE 14 MG/24 HOURS TOPICAL PATCH TD SCH (10:38)
[2022-02-12] MEDS: MELATONIN 5 MG TABLETS PO SCH (22:59)
[2022-02-12] MEDS: METHOCARBAMOL 500 MG TABLET PO PRN (23:00)
[2022-02-12] MEDS: THIAMINE HCL 100 MG TABLET (FP) PO SCH (23:00)
[2022-02-13] MEDS ORDERED: chlordiazePOXIDE HCL 10 MG CAPSULE PO PRN
[2022-02-13] MEDS: chlordiazePOXIDE HCL 10 MG CAPSULE PO SCH ×4 (05:37→22:35)
[2022-02-13] MEDS: hydrOXYzine PAMOATE 25 MG CAPSULE (FP) PO SCH ×5 (05:37→22:35)
[2022-02-13] MEDS: PRENATAL VITAMINS W/ FOLIC ACID TABLET (FP) PO SCH (10:36)
[2022-02-13] MEDS: NICOTINE 14 MG/24 HOURS TOPICAL PATCH TD SCH (10:37)
[2022-02-13] MEDS: MELATONIN 5 MG TABLETS PO SCH (22:35)
[2022-02-13] MEDS: THIAMINE HCL 100 MG TABLET (FP) PO SCH (22:35)
[2022-02-14] MEDS: hydrOXYzine PAMOATE 25 MG CAPSULE (FP) PO SCH ×5 (06:13→22:20)
[2022-02-14] MEDS: chlordiazePOXIDE HCL 10 MG CAPSULE PO SCH ×2 (06:14→18:26)
[2022-02-14] MEDS: PRENATAL VITAMINS W/ FOLIC ACID TABLET (FP) PO SCH (10:04)
[2022-02-14] MEDS: NICOTINE 14 MG/24 HOURS TOPICAL PATCH TD SCH (10:04)
[2022-02-14] MEDS: MELATONIN 5 MG TABLETS PO SCH (22:20)
[2022-02-14] MEDS: THIAMINE HCL 100 MG TABLET (FP) PO SCH (22:20)
[2022-02-15] MEDS ORDERED: chlordiazePOXIDE HCL 10 MG CAPSULE PO ONE (05:00)
[2022-02-15] MEDS: hydrOXYzine PAMOATE 25 MG CAPSULE (FP) PO SCH (05:43)
[2022-02-15 10:17] VITALS: BP 147/81; PULSE 87; RESP 16; TEMP 97
== END 2022-02-15 10:38 | disposition home or self-care (01) | DRG 775 ==
LOC: YASAS 18:13 → UNDOADMIN 19:25 → Y3N 19:25
PROVIDERS: ADMIT Allergy & Immunology; ATTEND Surgery
PROC: HZ2ZZZZ Detoxification Services for Substance Abuse Treatment (ICD-10-PCS; principal; 2022-02-09)
DX: F10.230 Alcohol dependence with withdrawal, uncomplicated (principal); F17.210 Nicotine dependence, cigarettes, uncomplicated; I10 Essential (primary) hypertension; R73.9 Hyperglycemia, unspecified
CPT/HCPCS: 36415; 80053; 83036; 85027; 86780; 87389; C9803-CS; U0003; U0005

== ENCOUNTER 2022-03-07 20:10 | Inpatient (IN) | payer OTHER ==
[2022-03-07 20:51] VITALS: BMI 26.6
[2022-03-08] MEDS ORDERED: MAGNESIUM HYDROX 2400MG/30ML ORAL SUSPENSION 30 ML CUP PO PRN (01:22)
[2022-03-08] MEDS ORDERED: ONDANSETRON *ODT* 4 MG TABLET SL PRN (01:22)
[2022-03-08] MEDS ORDERED: BENZOCAINE/MENTHOL (CHLORASEPTIC ) LOZENGE MM PRN (01:22)
[2022-03-08] MEDS ORDERED: MAGNESIUM CITRATE 300 ML BOTTLE PO PRN (01:22)
[2022-03-08] MEDS ORDERED: IBUPROFEN 400 MG TABLET (FP) PO PRN (01:22)
[2022-03-08] MEDS ORDERED: NICOTINE POLACRILEX 2 MG GUM BUC PRN (01:22)
[2022-03-08] MEDS ORDERED: ACETAMINOPHEN 325 MG TABLET (FP) PO PRN ×2 (01:22)
[2022-03-08] MEDS ORDERED: IBUPROFEN 600 MG TABLET (FP) PO PRN (01:22)
[2022-03-08] MEDS ORDERED: LOPERAMIDE HCL 2 MG CAPSULE PO PRN (01:22)
[2022-03-08] MEDS ORDERED: DICYCLOMINE HCL 10 MG CAPSULE PO PRN (01:22)
[2022-03-08] MEDS ORDERED: NALOXONE HCL (KLOXXADO) 8 MG SPRAY NS PRN (01:22)
[2022-03-08] MEDS ORDERED: BISMUTH SUBSALICYLATE 524 MG/30 ML PO PRN (01:22)
[2022-03-08] MEDS ORDERED: chlordiazePOXIDE HCL 25 MG CAPSULE PO PRN (01:22)
[2022-03-08] MEDS ORDERED: MAG HYDROX/AL HYDROX/SIMETH 30 ML UNIT-DOSE CUP PO PRN (01:22)
[2022-03-08] MEDS: chlordiazePOXIDE HCL 25 MG CAPSULE PO SCH ×4 (05:34→22:15)
[2022-03-08] MEDS: NICOTINE 14 MG/24 HOURS TOPICAL PATCH TD SCH (10:27)
[2022-03-08] MEDS: METHOCARBAMOL 500 MG TABLET PO PRN (10:27)
[2022-03-08] MEDS: PRENATAL VITAMINS W/ FOLIC ACID TABLET (FP) PO SCH (10:27)
[2022-03-08 11:27] LABS: HEMATOCRIT 42.7 % (35.4-49); HEMOGLOBIN 14.4 GM/dL (11.7-16.9); MCH 33.7 pg (25.7-33.7); MCHC 33.9 g/dl (32.0-35.9); MEAN CELL VOLUME 99.5 fl (80-96); MEAN PLT VOLUME 9.1 fl (7.5-11.1); PLATELET COUNT 206 10^3/uL (134-434); RBC 4.29 M/mm3 (4.00-5.60); RDW 13.4 % (11.9-15.9); WHITE BLOOD COUNT 3.5 K/mm3 (4.0-10.0)
[2022-03-08 11:45] LABS: CALCIUM 8.6 mg/dL (8.5-10.1)
[2022-03-08 11:46] LABS: ALBUMIN 3.4 g/dl (3.4-5.0); BLOOD UREA NITROGEN 14.5 mg/dL (7-18)
[2022-03-08 11:49] LABS: CREATININE 0.8 mg/dL (0.55-1.3)
[2022-03-08 11:50] LABS: BILIRUBIN,TOTAL 0.9 mg/dL (0.2-1); TOT PROT 7.2 g/dl (6.4-8.2)
[2022-03-08] MEDS: THIAMINE HCL 100 MG TABLET (FP) PO SCH (22:15)
[2022-03-08] MEDS: MELATONIN 5 MG TABLETS PO SCH (22:15)
[2022-03-09] MEDS: chlordiazePOXIDE HCL 25 MG CAPSULE PO SCH ×4 (05:45→22:36)
[2022-03-09] MEDS: NICOTINE 14 MG/24 HOURS TOPICAL PATCH TD SCH (10:21)
[2022-03-09] MEDS: PRENATAL VITAMINS W/ FOLIC ACID TABLET (FP) PO SCH (10:22)
[2022-03-09] MEDS: METHOCARBAMOL 500 MG TABLET PO PRN ×2 (17:32→22:37)
[2022-03-09] MEDS: THIAMINE HCL 100 MG TABLET (FP) PO SCH (22:36)
[2022-03-09] MEDS: MELATONIN 5 MG TABLETS PO SCH (22:36)
[2022-03-10] MEDS ORDERED: chlordiazePOXIDE HCL 10 MG CAPSULE PO PRN
[2022-03-10] MEDS: chlordiazePOXIDE HCL 10 MG CAPSULE PO SCH ×4 (05:28→22:37)
[2022-03-10] MEDS: NICOTINE 14 MG/24 HOURS TOPICAL PATCH TD SCH (10:44)
[2022-03-10] MEDS: PRENATAL VITAMINS W/ FOLIC ACID TABLET (FP) PO SCH (10:44)
[2022-03-10] MEDS: METHOCARBAMOL 500 MG TABLET PO PRN (17:40)
[2022-03-10] MEDS: MELATONIN 5 MG TABLETS PO SCH (22:37)
[2022-03-10] MEDS: THIAMINE HCL 100 MG TABLET (FP) PO SCH (22:37)
[2022-03-11] MEDS: chlordiazePOXIDE HCL 10 MG CAPSULE PO SCH ×2 (05:58→17:47)
[2022-03-11] MEDS: NICOTINE 14 MG/24 HOURS TOPICAL PATCH TD SCH (10:50)
[2022-03-11] MEDS: PRENATAL VITAMINS W/ FOLIC ACID TABLET (FP) PO SCH (10:51)
[2022-03-11] MEDS: METHOCARBAMOL 500 MG TABLET PO PRN (17:48)
[2022-03-11] MEDS: hydrOXYzine PAMOATE 25 MG CAPSULE (FP) PO PRN ×2 (17:48→22:36)
[2022-03-11] MEDS: THIAMINE HCL 100 MG TABLET (FP) PO SCH (22:35)
[2022-03-11] MEDS: MELATONIN 5 MG TABLETS PO SCH (22:35)
[2022-03-12] MEDS ORDERED: chlordiazePOXIDE HCL 10 MG CAPSULE PO ONE (05:00)
[2022-03-12 09:17] VITALS: BP 142/94; PULSE 90; RESP 18; TEMP 97.1
[2022-03-12] MEDS: PRENATAL VITAMINS W/ FOLIC ACID TABLET (FP) PO SCH (10:33)
[2022-03-12] MEDS: NICOTINE 14 MG/24 HOURS TOPICAL PATCH TD SCH (10:34)
== END 2022-03-12 12:25 | disposition other institution (70) | DRG 775 ==
LOC: SUATTDRO → YASAS 20:10 → Y6N 03-08 02:50
PROVIDERS: ADMIT Allergy & Immunology; ATTEND Surgery
PROC: HZ2ZZZZ Detoxification Services for Substance Abuse Treatment (ICD-10-PCS; principal; 2022-03-08)
DX: F10.230 Alcohol dependence with withdrawal, uncomplicated (principal); F17.210 Nicotine dependence, cigarettes, uncomplicated; F10.282 Alcohol dependence with alcohol-induced sleep disorder; I10 Essential (primary) hypertension; Z56.0 Unemployment, unspecified; Z59.00 Homelessness unspecified
CPT/HCPCS: 36415; 80053; 85027; 86780; 93005; 93010; C9803-CS; U0003; U0005

== ENCOUNTER 2022-03-12 13:04 | Inpatient (IN) | payer OTHER ==
[2022-03-12] MEDS ORDERED: P-EPHED 60MG/TRIPROLIDI 2.5MG TABLET PO PRN (14:04)
[2022-03-12] MEDS ORDERED: MAGNESIUM CITRATE 300 ML BOTTLE PO PRN (14:04)
[2022-03-12] MEDS ORDERED: NICOTINE POLACRILEX 2 MG GUM BUC PRN (14:04)
[2022-03-12] MEDS ORDERED: hydrOXYzine PAMOATE 25 MG CAPSULE (FP) PO PRN (14:04)
[2022-03-12] MEDS ORDERED: NICOTINE 10 MG CARTRIDGE (INHALER) IH PRN (14:04)
[2022-03-12] MEDS ORDERED: MAGNESIUM HYDROX 2400MG/30ML ORAL SUSPENSION 30 ML CUP PO PRN (14:04)
[2022-03-12] MEDS ORDERED: LOPERAMIDE HCL 2 MG CAPSULE PO PRN (14:04)
[2022-03-12] MEDS ORDERED: ACETAMINOPHEN 325 MG TABLET (FP) PO PRN (14:04)
[2022-03-12] MEDS ORDERED: MAG HYDROX/AL HYDROX/SIMETH 30 ML UNIT-DOSE CUP PO PRN (14:04)
[2022-03-12] MEDS ORDERED: BENZOCAINE/MENTHOL (CHLORASEPTIC ) LOZENGE MM PRN (14:04)
[2022-03-12] MEDS: MELATONIN 5 MG TABLETS PO SCH (22:01)
[2022-03-12] MEDS: THIAMINE HCL 100 MG TABLET (FP) PO SCH (22:01)
[2022-03-13] MEDS: PRENATAL VITAMINS W/ FOLIC ACID TABLET (FP) PO SCH (10:23)
[2022-03-13] MEDS: NICOTINE 7 MG/24 HOURS TOPICAL PATCH TD SCH (10:24)
[2022-03-13] MEDS ORDERED: FLU VACC QS2022-23(6MOS UP)/PF 60 MCG/0.5 ML SYRINGE IM ONE (12:10)
[2022-03-13] MEDS: IBUPROFEN 400 MG TABLET (FP) PO PRN (12:12)
[2022-03-13] MEDS ORDERED: COLLOIDAL OATMEAL 1 BAR EACH TP PRN (15:59)
[2022-03-13] MEDS: MELATONIN 5 MG TABLETS PO SCH (21:42)
[2022-03-13] MEDS: THIAMINE HCL 100 MG TABLET (FP) PO SCH (21:42)
[2022-03-14] MEDS: PRENATAL VITAMINS W/ FOLIC ACID TABLET (FP) PO SCH (09:20)
[2022-03-14] MEDS: NICOTINE 7 MG/24 HOURS TOPICAL PATCH TD SCH (09:21)
[2022-03-14] MEDS: MELATONIN 5 MG TABLETS PO SCH (21:21)
[2022-03-14] MEDS: THIAMINE HCL 100 MG TABLET (FP) PO SCH (21:21)
[2022-03-15] MEDS: PRENATAL VITAMINS W/ FOLIC ACID TABLET (FP) PO SCH (10:21)
[2022-03-15] MEDS: NICOTINE 7 MG/24 HOURS TOPICAL PATCH TD SCH (10:22)
[2022-03-15] MEDS: THIAMINE HCL 100 MG TABLET (FP) PO SCH (21:15)
[2022-03-15] MEDS: MELATONIN 5 MG TABLETS PO SCH (21:15)
[2022-03-16] MEDS: PRENATAL VITAMINS W/ FOLIC ACID TABLET (FP) PO SCH (09:38)
[2022-03-16] MEDS: NICOTINE 7 MG/24 HOURS TOPICAL PATCH TD SCH (09:38)
[2022-03-16] MEDS: IBUPROFEN 400 MG TABLET (FP) PO PRN (18:59)
[2022-03-16] MEDS: THIAMINE HCL 100 MG TABLET (FP) PO SCH (21:17)
[2022-03-16] MEDS: SUVOREXANT 10 MG TABLET PO PRN (21:18)
[2022-03-17] MEDS: NICOTINE 7 MG/24 HOURS TOPICAL PATCH TD SCH (10:52)
[2022-03-17] MEDS: PRENATAL VITAMINS W/ FOLIC ACID TABLET (FP) PO SCH (10:52)
[2022-03-17] MEDS: THIAMINE HCL 100 MG TABLET (FP) PO SCH (21:11)
[2022-03-17] MEDS: SUVOREXANT 10 MG TABLET PO PRN (21:11)
[2022-03-18] MEDS: PRENATAL VITAMINS W/ FOLIC ACID TABLET (FP) PO SCH (09:44)
[2022-03-18] MEDS: NICOTINE 7 MG/24 HOURS TOPICAL PATCH TD SCH (09:44)
[2022-03-18] MEDS ORDERED: BENZOCAINE 20 % GEL TUBE MM PRN (14:20)
[2022-03-18] MEDS: NALTREXONE HCL 50 MG TABLET PO SCH (14:44)
[2022-03-18] MEDS: THIAMINE HCL 100 MG TABLET (FP) PO SCH (21:29)
[2022-03-18] MEDS: SUVOREXANT 10 MG TABLET PO PRN (21:29)
[2022-03-18] MEDS: AMOXICILLIN 500 MG CAPSULE (FP) PO SCH (21:30)
[2022-03-19] MEDS: NICOTINE 7 MG/24 HOURS TOPICAL PATCH TD SCH (10:30)
[2022-03-19] MEDS: PRENATAL VITAMINS W/ FOLIC ACID TABLET (FP) PO SCH (10:30)
[2022-03-19] MEDS: AMOXICILLIN 500 MG CAPSULE (FP) PO SCH ×2 (10:30→21:05)
[2022-03-19] MEDS: NALTREXONE HCL 50 MG TABLET PO SCH (10:30)
[2022-03-19] MEDS: SUVOREXANT 10 MG TABLET PO PRN (21:05)
[2022-03-19] MEDS: THIAMINE HCL 100 MG TABLET (FP) PO SCH (21:05)
[2022-03-20] MEDS: NICOTINE 7 MG/24 HOURS TOPICAL PATCH TD SCH (09:46)
[2022-03-20] MEDS: NALTREXONE HCL 50 MG TABLET PO SCH (09:46)
[2022-03-20] MEDS: AMOXICILLIN 500 MG CAPSULE (FP) PO SCH ×2 (09:46→21:21)
[2022-03-20] MEDS: PRENATAL VITAMINS W/ FOLIC ACID TABLET (FP) PO SCH (09:46)
[2022-03-20] MEDS: THIAMINE HCL 100 MG TABLET (FP) PO SCH (21:21)
[2022-03-20] MEDS: SUVOREXANT 10 MG TABLET PO PRN (21:22)
[2022-03-21] MEDS: PRENATAL VITAMINS W/ FOLIC ACID TABLET (FP) PO SCH (09:49)
[2022-03-21] MEDS: AMOXICILLIN 500 MG CAPSULE (FP) PO SCH ×2 (09:49→21:14)
[2022-03-21] MEDS: NICOTINE 7 MG/24 HOURS TOPICAL PATCH TD SCH (09:50)
[2022-03-21] MEDS: NALTREXONE HCL 50 MG TABLET PO SCH (09:50)
[2022-03-21] MEDS: THIAMINE HCL 100 MG TABLET (FP) PO SCH (21:14)
[2022-03-21] MEDS: SUVOREXANT 10 MG TABLET PO PRN (21:14)
[2022-03-22] MEDS: PRENATAL VITAMINS W/ FOLIC ACID TABLET (FP) PO SCH (10:19)
[2022-03-22] MEDS: NALTREXONE HCL 50 MG TABLET PO SCH (10:19)
[2022-03-22] MEDS: AMOXICILLIN 500 MG CAPSULE (FP) PO SCH ×2 (10:19→21:10)
[2022-03-22] MEDS: NICOTINE 7 MG/24 HOURS TOPICAL PATCH TD SCH (10:19)
[2022-03-22] MEDS: SUVOREXANT 10 MG TABLET PO PRN (21:09)
[2022-03-22] MEDS: THIAMINE HCL 100 MG TABLET (FP) PO SCH (21:10)
[2022-03-23] MEDS: AMOXICILLIN 500 MG CAPSULE (FP) PO SCH ×2 (09:48→21:15)
[2022-03-23] MEDS: NICOTINE 7 MG/24 HOURS TOPICAL PATCH TD SCH (09:49)
[2022-03-23] MEDS: PRENATAL VITAMINS W/ FOLIC ACID TABLET (FP) PO SCH (09:49)
[2022-03-23] MEDS: NALTREXONE HCL 50 MG TABLET PO SCH (09:49)
[2022-03-23] MEDS ORDERED: NICOTINE 7 MG/24 HOURS TOPICAL PATCH TD PRN (12:37)
[2022-03-23] MEDS: THIAMINE HCL 100 MG TABLET (FP) PO SCH (21:14)
[2022-03-23] MEDS: SUVOREXANT 10 MG TABLET PO PRN (21:15)
[2022-03-24] MEDS: NALTREXONE HCL 50 MG TABLET PO SCH (10:59)
[2022-03-24] MEDS: PRENATAL VITAMINS W/ FOLIC ACID TABLET (FP) PO SCH (10:59)
[2022-03-24] MEDS: AMOXICILLIN 500 MG CAPSULE (FP) PO SCH ×2 (10:59→21:31)
[2022-03-24] MEDS: THIAMINE HCL 100 MG TABLET (FP) PO SCH (21:31)
[2022-03-24] MEDS: SUVOREXANT 10 MG TABLET PO PRN (21:32)
[2022-03-25] MEDS: AMOXICILLIN 500 MG CAPSULE (FP) PO SCH (10:12)
[2022-03-25] MEDS: NALTREXONE HCL 50 MG TABLET PO SCH (10:12)
[2022-03-25] MEDS: PRENATAL VITAMINS W/ FOLIC ACID TABLET (FP) PO SCH (10:12)
[2022-03-25] MEDS: THIAMINE HCL 100 MG TABLET (FP) PO SCH (21:22)
[2022-03-25] MEDS: SUVOREXANT 10 MG TABLET PO PRN (21:22)
[2022-03-26] MEDS: PRENATAL VITAMINS W/ FOLIC ACID TABLET (FP) PO SCH (10:33)
[2022-03-26] MEDS: guaiFENesin 200 MG/10 ML 10 ML UNIT-DOSE CUPS PO PRN ×2 (10:33→21:24)
[2022-03-26] MEDS: NALTREXONE HCL 50 MG TABLET PO SCH (10:33)
[2022-03-26] MEDS: THIAMINE HCL 100 MG TABLET (FP) PO SCH (21:23)
[2022-03-26] MEDS: SUVOREXANT 10 MG TABLET PO PRN (21:24)
[2022-03-27] MEDS: guaiFENesin 200 MG/10 ML 10 ML UNIT-DOSE CUPS PO PRN ×2 (06:18→21:40)
[2022-03-27] MEDS: NALTREXONE HCL 50 MG TABLET PO SCH (09:28)
[2022-03-27] MEDS: PRENATAL VITAMINS W/ FOLIC ACID TABLET (FP) PO SCH (09:28)
[2022-03-27] MEDS: THIAMINE HCL 100 MG TABLET (FP) PO SCH (21:39)
[2022-03-27] MEDS: SUVOREXANT 10 MG TABLET PO PRN (21:40)
[2022-03-28] MEDS: PRENATAL VITAMINS W/ FOLIC ACID TABLET (FP) PO SCH (09:52)
[2022-03-28] MEDS: NALTREXONE HCL 50 MG TABLET PO SCH (09:52)
[2022-03-28] MEDS: guaiFENesin 200 MG/10 ML 10 ML UNIT-DOSE CUPS PO PRN ×2 (09:52→21:19)
[2022-03-28] MEDS: THIAMINE HCL 100 MG TABLET (FP) PO SCH (21:18)
[2022-03-28] MEDS: SUVOREXANT 10 MG TABLET PO PRN (21:19)
[2022-03-29] MEDS: PRENATAL VITAMINS W/ FOLIC ACID TABLET (FP) PO SCH (09:26)
[2022-03-29] MEDS: NALTREXONE HCL 50 MG TABLET PO SCH (09:26)
[2022-03-29] MEDS: guaiFENesin 200 MG/10 ML 10 ML UNIT-DOSE CUPS PO PRN ×2 (09:27→21:22)
[2022-03-29] MEDS: THIAMINE HCL 100 MG TABLET (FP) PO SCH (21:21)
[2022-03-29] MEDS: SUVOREXANT 10 MG TABLET PO PRN (21:22)
[2022-03-30] MEDS: guaiFENesin 200 MG/10 ML 10 ML UNIT-DOSE CUPS PO PRN (06:56)
[2022-03-30] MEDS: NALTREXONE HCL 50 MG TABLET PO SCH (09:34)
[2022-03-30] MEDS: PRENATAL VITAMINS W/ FOLIC ACID TABLET (FP) PO SCH (09:34)
[2022-03-30] MEDS: THIAMINE HCL 100 MG TABLET (FP) PO SCH (21:11)
[2022-03-30] MEDS: SUVOREXANT 10 MG TABLET PO PRN (21:11)
[2022-03-31] MEDS: guaiFENesin 200 MG/10 ML 10 ML UNIT-DOSE CUPS PO PRN (06:36)
[2022-03-31 07:07] VITALS: RESP 18
[2022-03-31] MEDS: NALTREXONE HCL 50 MG TABLET PO SCH (09:25)
[2022-03-31] MEDS: PRENATAL VITAMINS W/ FOLIC ACID TABLET (FP) PO SCH (09:26)
[2022-03-31] MEDS ORDERED: SUVOREXANT 10 MG TABLET PO ONE (20:30)
[2022-03-31] MEDS: SUVOREXANT 10 MG TABLET PO PRN (21:18)
[2022-03-31] MEDS: THIAMINE HCL 100 MG TABLET (FP) PO SCH (21:18)
[2022-04-01] MEDS: guaiFENesin 200 MG/10 ML 10 ML UNIT-DOSE CUPS PO PRN (06:59)
[2022-04-01] MEDS: PRENATAL VITAMINS W/ FOLIC ACID TABLET (FP) PO SCH (09:31)
[2022-04-01] MEDS: NALTREXONE HCL 50 MG TABLET PO SCH (09:31)
[2022-04-01] MEDS: THIAMINE HCL 100 MG TABLET (FP) PO SCH (21:11)
[2022-04-01] MEDS: SUVOREXANT 10 MG TABLET PO PRN (21:12)
[2022-04-02 07:11] VITALS: BP 137/87; PULSE 66; TEMP 97.3
[2022-04-02] MEDS: PRENATAL VITAMINS W/ FOLIC ACID TABLET (FP) PO SCH (09:11)
[2022-04-02] MEDS: NALTREXONE HCL 50 MG TABLET PO SCH (09:12)
== END 2022-04-02 09:42 | disposition home or self-care (01) | DRG 772 ==
LOC: YASAS 13:04 → Y3W 13:06
PROVIDERS: ADMIT Allergy & Immunology; ATTEND Psychiatry & Neurology Pain Medicine
PROC: HZ42ZZZ Group Counseling for Substance Abuse Treatment, Cognitive-Behavioral (ICD-10-PCS; principal; 2022-03-12)
DX: F10.20 Alcohol dependence, uncomplicated (principal); F10.282 Alcohol dependence with alcohol-induced sleep disorder; F31.9 Bipolar disorder, unspecified; K70.10 Alcoholic hepatitis without ascites; K02.9 Dental caries, unspecified; Z56.0 Unemployment, unspecified; Z59.00 Homelessness unspecified
CPT/HCPCS: G0008; Q2036

== ENCOUNTER 2022-05-07 21:13 | Inpatient (IN) | payer OTHER ==
[2022-05-08 03:30] VITALS: BMI 24.8
[2022-05-08] MEDS ORDERED: IBUPROFEN 400 MG TABLET (FP) PO PRN (04:35)
[2022-05-08] MEDS ORDERED: NICOTINE 10 MG CARTRIDGE (INHALER) IH PRN (04:35)
[2022-05-08] MEDS ORDERED: ACETAMINOPHEN 325 MG TABLET (FP) PO PRN ×2 (04:35)
[2022-05-08] MEDS ORDERED: BENZOCAINE/MENTHOL (CHLORASEPTIC ) LOZENGE MM PRN (04:35)
[2022-05-08] MEDS ORDERED: LORazepam 1 MG TABLET PO PRN (04:35)
[2022-05-08] MEDS ORDERED: POLYETHYLENE GLYCOL (HEALTHYLAX) 3350 17 GM PACKET PO PRN (04:35)
[2022-05-08] MEDS ORDERED: ONDANSETRON *ODT* 4 MG TABLET SL PRN (04:35)
[2022-05-08] MEDS ORDERED: BISMUTH SUBSALICYLATE 524 MG/30 ML PO PRN (04:35)
[2022-05-08] MEDS ORDERED: METHOCARBAMOL 500 MG TABLET PO PRN (04:35)
[2022-05-08] MEDS ORDERED: MAGNESIUM HYDROX 2400MG/30ML ORAL SUSPENSION 30 ML CUP PO PRN (04:35)
[2022-05-08] MEDS ORDERED: DICYCLOMINE HCL 10 MG CAPSULE PO PRN (04:35)
[2022-05-08] MEDS ORDERED: LOPERAMIDE HCL 2 MG CAPSULE PO PRN (04:35)
[2022-05-08] MEDS ORDERED: NALOXONE HCL (KLOXXADO) 8 MG SPRAY NS PRN (04:35)
[2022-05-08] MEDS ORDERED: MAG HYDROX/AL HYDROX/SIMETH 30 ML UNIT-DOSE CUP PO PRN (04:35)
[2022-05-08] MEDS ORDERED: IBUPROFEN 600 MG TABLET (FP) PO PRN (04:35)
[2022-05-08] MEDS ORDERED: LORazepam 2 MG TABLET ONE ×2 (05:37→11:53)
[2022-05-08] MEDS: LORazepam 2 MG TABLET PO SCH ×4 (05:47→22:36)
[2022-05-08] MEDS: NICOTINE 21 MG/24 HOURS TOPICAL PATCH TD SCH (10:00)
[2022-05-08] MEDS: PRENATAL VITAMINS W/ FOLIC ACID TABLET (FP) PO SCH (10:00)
[2022-05-08] MEDS ORDERED: NICOTINE 21 MG/24 HOURS TOPICAL PATCH ONE (11:52)
[2022-05-08 14:37] LABS: HEMATOCRIT 41.7 % (35.4-49); HEMOGLOBIN 14.2 GM/dL (11.7-16.9); MCH 33.4 pg (25.7-33.7); MCHC 34.1 g/dl (32.0-35.9); MEAN PLT VOLUME 8.5 fl (7.5-11.1); PLATELET COUNT 242 10^3/uL (134-434); RBC 4.26 M/mm3 (4.00-5.60); RDW 13.7 % (11.9-15.9); WHITE BLOOD COUNT 2.9 K/mm3 (4.0-10.0)
[2022-05-08 15:31] LABS: ALBUMIN 3.6 g/dl (3.4-5.0); CALCIUM 8.7 mg/dL (8.5-10.1)
[2022-05-08 15:36] LABS: BILIRUBIN,TOTAL 0.9 mg/dL (0.2-1); TOT PROT 7.2 g/dl (6.4-8.2)
[2022-05-08 16:06] LABS: HIV INTERPRETATION NEGATIVE (NEGATIVE)
[2022-05-08] MEDS: THIAMINE HCL 100 MG TABLET (FP) PO SCH (22:36)
[2022-05-08] MEDS: MELATONIN 5 MG TABLETS PO SCH (22:36)
[2022-05-09] MEDS: LORazepam 1 MG TABLET PO SCH ×4 (05:10→22:21)
[2022-05-09] MEDS: NICOTINE 21 MG/24 HOURS TOPICAL PATCH TD SCH (10:39)
[2022-05-09] MEDS: PRENATAL VITAMINS W/ FOLIC ACID TABLET (FP) PO SCH (10:39)
[2022-05-09] MEDS: THIAMINE HCL 100 MG TABLET (FP) PO SCH (22:21)
[2022-05-09] MEDS: MELATONIN 5 MG TABLETS PO SCH (22:21)
[2022-05-10] MEDS ORDERED: LORazepam 0.5 MG TABLET PO PRN
[2022-05-10] MEDS: LORazepam 0.5 MG TABLET PO SCH ×4 (05:39→22:12)
[2022-05-10] MEDS: PRENATAL VITAMINS W/ FOLIC ACID TABLET (FP) PO SCH (10:07)
[2022-05-10] MEDS: NICOTINE 21 MG/24 HOURS TOPICAL PATCH TD SCH (10:09)
[2022-05-10] MEDS: THIAMINE HCL 100 MG TABLET (FP) PO SCH (22:12)
[2022-05-10] MEDS: MELATONIN 5 MG TABLETS PO SCH (22:12)
[2022-05-11] MEDS ORDERED: LORazepam 0.5 MG TABLET PO ONE (05:00)
[2022-05-11] MEDS: PRENATAL VITAMINS W/ FOLIC ACID TABLET (FP) PO SCH (09:55)
[2022-05-11] MEDS: NICOTINE 21 MG/24 HOURS TOPICAL PATCH TD SCH (09:55)
[2022-05-11 13:16] VITALS: BP 134/81; PULSE 62; RESP 18; TEMP 98.1
== END 2022-05-11 14:49 | disposition other institution (70) | DRG 775 ==
LOC: YASAS 21:13 → Y6N 05-08 12:31
PROVIDERS: ADMIT Allergy & Immunology; ATTEND Surgery
PROC: HZ2ZZZZ Detoxification Services for Substance Abuse Treatment (ICD-10-PCS; principal; 2022-05-08)
DX: F10.230 Alcohol dependence with withdrawal, uncomplicated (principal); F17.210 Nicotine dependence, cigarettes, uncomplicated; F10.282 Alcohol dependence with alcohol-induced sleep disorder; F10.24 Alcohol dependence with alcohol-induced mood disorder; F31.9 Bipolar disorder, unspecified; I10 Essential (primary) hypertension; D72.819 Decreased white blood cell count, unspecified; Z87.828 Personal history of other (healed) physical injury and trauma; Z56.0 Unemployment, unspecified; Z59.00 Homelessness unspecified
CPT/HCPCS: 36415; 80053; 85027; 86780; 87389; C9803-CS; U0003; U0005

== ENCOUNTER 2022-05-11 15:09 | Inpatient (IN) | payer OTHER ==
[~2022-05-11 15:09] MED LIST changes: +BENZOCAINE/MENTHOL (CHLORASEPTIC ) LOZENGE MM PRN; -BISMUTH SUBSALICYLATE 524 MG/30 ML PO PRN; -DICYCLOMINE HCL 10 MG CAPSULE PO PRN; +LOPERAMIDE HCL 2 MG CAPSULE PO PRN; -MAGNESIUM CITRATE 300 ML BOTTLE PO PRN; -MENTHOL/PHENOL 1 EACH UD MM PRN; -METHOCARBAMOL 500 MG TABLET PO PRN; -METOPROLOL TARTRATE 25 MG TABLET (FP) PO ONE; -NICOTINE POLACRILEX 2 MG GUM BUC PRN; +NICOTINE POLACRILEX 4 MG GUM BUC PRN; -ONDANSETRON *ODT* 4 MG TABLET SL PRN; +P-EPHED 60MG/TRIPROLIDI 2.5MG TABLET PO PRN; +POLYETHYLENE GLYCOL (HEALTHYLAX) 3350 17 GM PACKET PO PRN; +guaiFENesin 200 MG/10 ML 10 ML UNIT-DOSE CUPS PO PRN
[2022-05-11] MEDS: NICOTINE 10 MG CARTRIDGE (INHALER) IH PRN (15:58)
[2022-05-11] MEDS: THIAMINE HCL 100 MG TABLET (FP) PO SCH (21:50)
[2022-05-11] MEDS: MELATONIN 5 MG TABLETS PO SCH (21:50)
[2022-05-12] MEDS: NICOTINE 21 MG/24 HOURS TOPICAL PATCH TD SCH (09:40)
[2022-05-12] MEDS: PRENATAL VITAMINS W/ FOLIC ACID TABLET (FP) PO SCH (09:41)
[2022-05-12] MEDS: MELATONIN 5 MG TABLETS PO SCH (21:41)
[2022-05-12] MEDS: THIAMINE HCL 100 MG TABLET (FP) PO SCH (21:41)
[2022-05-13] MEDS: PRENATAL VITAMINS W/ FOLIC ACID TABLET (FP) PO SCH (09:51)
[2022-05-13] MEDS: NICOTINE 21 MG/24 HOURS TOPICAL PATCH TD SCH (09:51)
[2022-05-13] MEDS: THIAMINE HCL 100 MG TABLET (FP) PO SCH (21:14)
[2022-05-13] MEDS: NICOTINE 10 MG CARTRIDGE (INHALER) IH PRN (21:14)
[2022-05-13] MEDS: MELATONIN 5 MG TABLETS PO SCH (21:14)
[2022-05-14] MEDS: NICOTINE 21 MG/24 HOURS TOPICAL PATCH TD SCH (10:03)
[2022-05-14] MEDS: PRENATAL VITAMINS W/ FOLIC ACID TABLET (FP) PO SCH (10:05)
[2022-05-14] MEDS: THIAMINE HCL 100 MG TABLET (FP) PO SCH (21:27)
[2022-05-14] MEDS: MELATONIN 5 MG TABLETS PO SCH (21:27)
[2022-05-15 08:57] VITALS: BP 117/73; PULSE 79; RESP 20; TEMP 98.2
[2022-05-15] MEDS: PRENATAL VITAMINS W/ FOLIC ACID TABLET (FP) PO SCH (10:13)
[2022-05-15] MEDS: NICOTINE 21 MG/24 HOURS TOPICAL PATCH TD SCH (10:14)
== END 2022-05-15 10:45 | disposition home or self-care (01) | DRG 772 ==
LOC: YASAS 15:09 → Y3W 15:10
PROVIDERS: ADMIT Allergy & Immunology; ATTEND Psychiatry & Neurology Pain Medicine
PROC: HZ42ZZZ Group Counseling for Substance Abuse Treatment, Cognitive-Behavioral (ICD-10-PCS; principal; 2022-05-11)
DX: F10.20 Alcohol dependence, uncomplicated (principal); F17.210 Nicotine dependence, cigarettes, uncomplicated; F31.9 Bipolar disorder, unspecified; D72.819 Decreased white blood cell count, unspecified; I10 Essential (primary) hypertension; Z20.822 Contact with and (suspected) exposure to COVID-19; Z56.0 Unemployment, unspecified; Z59.00 Homelessness unspecified
CPT/HCPCS: 36415; 86803; C9803-CS; U0003; U0005

== ENCOUNTER 2023-07-03 01:50 | Inpatient (IN) | payer OTHER ==
[2023-07-03 02:10] VITALS: BMI 23.5
[2023-07-03] MEDS ORDERED: NICOTINE POLACRILEX 2 MG LOZENGE BC PRN (02:35)
[2023-07-03] MEDS ORDERED: NALOXONE HCL (KLOXXADO) 8 MG SPRAY NS PRN (02:35)
[2023-07-03] MEDS ORDERED: BISMUTH SUBSALICYLATE 524 MG/30 ML PO PRN (02:35)
[2023-07-03] MEDS ORDERED: guaiFENesin 600 MG TABLET.ER (FP) PO PRN (02:35)
[2023-07-03] MEDS ORDERED: LOPERAMIDE HCL 2 MG CAPSULE PO PRN (02:35)
[2023-07-03] MEDS ORDERED: IBUPROFEN 600 MG TABLET (FP) PO PRN (02:35)
[2023-07-03] MEDS ORDERED: ACETAMINOPHEN 325 MG TABLET (FP) PO PRN (02:35)
[2023-07-03] MEDS ORDERED: MAG HYDROX/AL HYDROX/SIMETH 30 ML UNIT-DOSE CUP PO PRN (02:35)
[2023-07-03] MEDS ORDERED: BENZONATATE 200 MG CAPSULE PO PRN (02:35)
[2023-07-03] MEDS ORDERED: MAGNESIUM HYDROX 2400MG/30ML ORAL SUSPENSION 30 ML CUP PO PRN (02:35)
[2023-07-03] MEDS ORDERED: IBUPROFEN 400 MG TABLET (FP) PO PRN (02:35)
[2023-07-03] MEDS ORDERED: ONDANSETRON *ODT* 4 MG TABLET SL PRN (02:35)
[2023-07-03] MEDS ORDERED: NALOXONE HCL 0.4 MG/ML VIAL IM PRN (02:35)
[2023-07-03] MEDS ORDERED: POLYETHYLENE GLYCOL (HEALTHYLAX) 3350 17 GM PACKET PO PRN (02:35)
[2023-07-03] MEDS ORDERED: DICYCLOMINE HCL 10 MG CAPSULE PO PRN (02:35)
[2023-07-03] MEDS: PRENATAL VITAMINS W/ FOLIC ACID TABLET (FP) PO SCH (09:57)
[2023-07-03] MEDS: NICOTINE 14 MG/24 HOURS TOPICAL PATCH TD SCH (09:57)
[2023-07-03] MEDS ORDERED: chlordiazePOXIDE HCL 25 MG CAPSULE PO PRN (21:39)
[2023-07-03] MEDS: THIAMINE HCL 100 MG TABLET (FP) PO SCH (22:24)
[2023-07-03] MEDS: chlordiazePOXIDE HCL 25 MG CAPSULE PO SCH (22:24)
[2023-07-03] MEDS: MELATONIN 5 MG TABLETS PO SCH (22:24)
[2023-07-03] MEDS: METHOCARBAMOL 500 MG TABLET PO PRN (22:25)
[2023-07-03] MEDS: chlordiazePOXIDE HCL 25 MG CAPSULE PO ONE (22:29)
[2023-07-04 12:47] LABS: HEMATOCRIT 43.7 % (35.4-49); HEMOGLOBIN 14.6 GM/dL (11.7-16.9); MCHC 33.5 g/dl (32.0-35.9); MEAN CELL VOLUME 101.7 fl (80-96); MEAN PLT VOLUME 8.2 fl (7.5-11.1); PLATELET COUNT 180 10^3/uL (134-434); WHITE BLOOD COUNT 3.2 K/mm3 (4.0-10.0)
[2023-07-04 13:04] LABS: POTASSIUM 3.6 mmol/L (3.5-5.1)
[2023-07-04 13:10] LABS: ALBUMIN 3.2 g/dl (3.4-5.0); BLOOD UREA NITROGEN 14.2 mg/dL (7-18); CALCIUM 8.7 mg/dL (8.5-10.1)
[2023-07-04 13:13] LABS: CREATININE 0.7 mg/dL (0.55-1.3)
[2023-07-04 13:15] LABS: TOT PROT 7.2 g/dl (6.4-8.2)
[2023-07-04 13:24] LABS: BILIRUBIN,TOTAL 1.3 mg/dL (0.2-1)
[2023-07-05] MEDS: chlordiazePOXIDE HCL 25 MG CAPSULE PO SCH (05:43)
[2023-07-06] MEDS ORDERED: chlordiazePOXIDE HCL 10 MG CAPSULE PO PRN
[2023-07-06] MEDS: chlordiazePOXIDE HCL 10 MG CAPSULE PO SCH (05:45)
[2023-07-06] MEDS: hydrOXYzine PAMOATE 25 MG CAPSULE (FP) PO PRN (22:21)
[2023-07-06] MEDS: cloNIDine HCL 0.1 MG TABLET PO PRN (23:32)
[2023-07-07] MEDS: chlordiazePOXIDE HCL 10 MG CAPSULE PO SCH (05:48)
[2023-07-07] MEDS: BENZOCAINE/MENTHOL (CHLORASEPTIC ) LOZENGE MM PRN (05:54)
[2023-07-08] MEDS: chlordiazePOXIDE HCL 10 MG CAPSULE PO ONE (05:56)
[2023-07-08 05:59] VITALS: TEMP 97.8
[2023-07-08 09:42] VITALS: BP 133/89; PULSE 90; RESP 16
== END 2023-07-08 09:32 | disposition home or self-care (01) | DRG 775 ==
LOC: YASAS 01:50 → Y6N 02:46 → Y3N 07-05 05:33
PROVIDERS: ADMIT Allergy & Immunology; ATTEND Surgery
PROC: HZ2ZZZZ Detoxification Services for Substance Abuse Treatment (ICD-10-PCS; principal; 2023-07-03)
DX: F10.230 Alcohol dependence with withdrawal, uncomplicated (principal); F10.220 Alcohol dependence with intoxication, uncomplicated; F17.210 Nicotine dependence, cigarettes, uncomplicated; F19.24 Other psychoactive substance dependence with psychoactive substance-induced mood disorder; R74.8 Abnormal levels of other serum enzymes; R73.9 Hyperglycemia, unspecified; Z59.00 Homelessness unspecified
CPT/HCPCS: 36415; 80053; 80305; 80307; 85027; 86780; 87635; 93005; 93010